=== PATIENT | male | born 1965 | race Caucasian/White ===

== ENCOUNTER 2023-06-01 10:39 | Emergency (ER) | payer SELFPAY ==
[2023-06-01 10:50] VITALS: BP 117/100; PULSE 87; RESP 16; TEMP 36.6; O2SAT 99
--- NOTE | 2023-06-01 11:03 | W.ED.GENAD ---
Discharge Plan Disposition Patient Disposition: Home Discharge Details Clinical Impression: Gastroenteritis Primary Care Provider: None,None ED Provider: Stanley Flores Home Meds and New Rx's Prescriptions: Continued atomoxetine 60 mg capsule 60 mg PO DAILY pantoprazole 40 mg tablet,delayed release (DR/EC) 40 mg PO DAILY amlodipine 10 mg tablet 10 mg PO DAILY potassium chloride 20 mEq/15 mL liquid 20 meq PO DAILY atorvastatin 40 mg tablet 40 mg PO DAILY furosemide [Lasix] 40 mg tablet 40 mg PO DAILY lisinopril 40 mg tablet 40 mg PO DAILY Levemir FlexPen 100 unit/mL (3 mL) insulin pen 40 unit subcut QHS Discharge Instructions Instructions: Gastroenteritis (ED) Additional Instructions: Please continue to stay well-hydrated and monitor symptoms. If you develop any fever, bloody or mucus in your stool, or have any significant change please return to the emergency department immediately for reassessment. We will contact you with your results if you have any positive findings. Stand Alone Forms: Work Release Referrals: Primary Care Provider [Outside] - 3 days Discharge Data Discharge Date/Time-TO BE ENTERED AT DEPARTURE: 06/01/23 15:07 HPI General Mode of arrival: ambulatory. Date/Time Provider Initiated Documentation: 06/01/23 10:57. Limitations to Documentation: no limitations. Information obtained by: patient and RN notes reviewed. History of Present Illness 57 year old M presents to the emergency department with the chief complaint of vomiting diarrhea, described as moderate and similar to prior episodes, Patient started experiencing this week(s) (2) and it has been intermittent. No relieving factors improve symptom(s), Patient did receive the following treatments prior to arrival, other (Imodium) Related Data Home Medications Medication Instructions Recorded Confirmed amlodipine 10 mg tablet 10 mg PO DAILY 06/01/23 06/01/23 atomoxetine 60 mg capsule 60 mg PO DAILY 06/01/23 06/01/23 atorvastatin 40 mg tablet 40 mg PO DAILY 06/01/23 06/01/23 furosemide 40 mg tablet (Lasix) 40 mg PO DAILY 06/01/23 06/01/23 insulin detemir U-100 100 unit/mL 40 unit subcut QHS 06/01/23 06/01/23 (3 mL) subcutaneous pen (Levemir FlexPen) lisinopril 40 mg tablet 40 mg PO DAILY 06/01/23 06/01/23 pantoprazole 40 mg tablet,delayed 40 mg PO DAILY 06/01/23 06/01/23 release potassium chloride 20 mEq/15 mL 20 meq PO DAILY 06/01/23 06/01/23 oral liquid Allergies Allergy/AdvReac Type Severity Reaction Status Date / Time tetracycline Allergy Mild Nausea Verified 06/01/23 10:47 nuts Allergy Mild Nausea Uncoded 06/01/23 10:47 General Stated Complaint: Abd Prob TIGIST: 4 Review of Systems Constitutional Constitutional: Denies fever(s), Denies malaise and Denies poor appetite Cardiovascular Cardiovascular: Denies chest pain and Denies dyspnea Respiratory Respiratory: Denies cough and Denies dyspnea Gastrointestinal Gastrointestinal: Reports as per HPI, Reports abdominal pain, Denies melena, Denies hematochezia, Denies change in bowel habits, Denies constipation, Denies cramping, Reports excessive flatus, Reports diarrhea, Reports loose stools, Reports vomiting and Denies hematemesis Genitourinary Genitourinary: Denies hematuria, Denies difficulty urinating, Denies urinary hesitancy, Denies urinary incontinence and Denies urinary urgency Integumentary/Breasts Skin/Breast: Denies rash Exam Const General: cooperative and not ill appearing Orientation: alert, awake and oriented x3 Resp Effort & Inspection: normal respiratory effort and able to speak in complete sentences Auscultation: clear to auscultation bilaterally Cardio Rate: regular rate Rhythm: regular rhythm Heart Sounds: S1 normal and S2 normal GI Inspection: obesity Palpation: soft, not firm, no guarding, no masses, no pulsatile masses, not rigid and nontender Auscultation: hyperactive bowel sounds Neuro General: patient alert, patient awake, patient oriented x3, gait normal and moves all extremities Course Vital Signs Vital signs: Vital Signs Temperature 36.6 C 06/01/23 10:50 Pulse 87 06/01/23 10:50 Respiratory Rate 16 06/01/23 10:50 Blood Pressure 117/100 H 06/01/23 10:50 Pulse Oximetry 99 06/01/23 10:50 Temperature 36.6 C 06/01/23 10:50 Temperature Source Tympanic 06/01/23 10:50 Pulse 87 06/01/23 10:50 Respiratory Rate 16 06/01/23 10:50 Respiratory Effort Normal, Non-Labored 06/01/23 10:52 Blood Pressure 117/100 H 06/01/23 10:50 Blood Pressure Position Sitting 06/01/23 10:50 Pulse Oximetry 99 06/01/23 10:50 Oxygen Delivery Method Room Air 06/01/23 10:50 Oxygen Flow Rate 0 06/01/23 10:50 Pain Level 4 06/01/23 10:50 Medical Decision Making Patient presenting to the emergency department for chief complaint of vomiting and diarrhea. Patient reports 2 weeks ago he had viral GI illness with vomiting and diarrhea that lasted approximately 2 to 3 days. That resolved but approximately every 5 to 6 days he has 24-hour return of symptoms. Patient reports that he has missed work during these episodes due to multiple episodes of vomiting along with the persistent diarrhea. Patient denies any blood or mucus, fever, or other systemic symptoms. Patient is homeless and living in a [facility]. Patient denies any recent antibiotic use. patient has had cholecystectomy and appendectomy, no other significant contributing GI history. Patient has been using Imodium which is not helping. Physical exam shows hyperactive bowel sounds, soft nontender abdomen, otherwise noncontributory exam. Given that patient states multiple episodes of vomiting along with diarrhea there is concern for some electrolyte abnormalities so we will check patient's blood work, will give fluids pending results, and will attempt to obtain a stool specimen. Will also give Lomotil pending results. Reviewed results and patient does have some noted leukocytosis, elevated BUN and creatinine with elevated glucose, and slight elevation of ALT and alk phos otherwise within normal labs. Patient is negative for C. difficile. Remaining of stool testing is still pending. Reassessed patient and he did state some improvement after receiving Pepto-Bismol and Lomotil did not seem to give significant results. Will continue to recommend Pepto-Bismol pending additional results but given no fever or chills, no blood or mucus, no significant abdominal tenderness will recommend outpatient observation and conservative management pending results. Patient does not have a primary care provider but states that he is planning on going to [facility] to establish health insurance and primary care provider. I informed him to return for any new or significant worsening of condition. After discussion of diagnosis and plan of care patient has no further needs, questions, or concerns and states clear understanding to return to the emergency department for any worsening symptoms. This documentation was generated using [employer] system, please disregard any oddities of phrase or misspellings. Lab Data Lab results reviewed: Yes I reviewed the patient's lab results. Quality:SDOH Health Related Social Needs: No Data to Display PFSH All Active Problems (Updated 06/01/23 @ 14:00 by Stanley Flores NP) Gastroenteritis (Acute) GERD (gastroesophageal reflux disease) (Chronic) Medical History Myocardial infarction Surgical History S/P cholecystectomy S/P appendectomy Social History Smoking/Tobacco Use Status: Current every day Tobacco Type: cigarettes Smoking risk assessment performed?: Yes Alcohol Intake: current Alcohol Intake frequency: holidays/special occasions only Alcohol type: beer Drug use: Never Substance use type: does not use Housing: homeless Do you feel safe at home: Yes Do you feel safe in your relationship?: Yes Additional Social history: pt has job and medication list
[2023-06-01 11:31] LABS: Abs Immature Grans 0.05 10^3/uL (0.0-0.06); Absolute Basophil Count 0.05 10^3/uL (0.0-0.2); Absolute Eosinophil Count 0.29 10^3/uL (0.0-0.7); Absolute Lymphocyte Count 1.18 10^3/uL (1.2-3.4); Basophils % 0.4; Eosinophils % 2.4; HCT 43.2 % (40.0-50.0); HGB 14.6 g/dL (13.5-17.5); Immature Grans % 0.4; Lymphocytes % 9.8; MCH 30.1 pg (27.0-33.0); MCHC 33.8 % (32.0-36.0); MCV 89 fL (80-95); MPV 9.4 fL (8.0-11.0); Monocytes % 7.8; Neutrophils % 79.2; Platelet Count 234 10^3/uL (130-400); RBC 4.85 10^6/uL (4.36-5.78); RDW 12.5 % (11.8-14.1); RDW-SD 41.1 fL; WBC 11.99 10^3/uL (4.4-10.8)
[2023-06-01 11:32] LABS: Absolute Monocyte Count 0.94 10^3/uL (0.1-0.8)
[2023-06-01 11:45] LABS: ALT 104 U/L (16-63); AST 34 U/L (15-37); Albumin 4.2 g/dL (3.4-5.0); Alkaline Phosphatase 118 U/L (46-116); Anion Gap 10.8 mmol/L (3-11); BUN 42 mg/dL (7-18); Bilirubin, Total 0.8 mg/dL (0.2-1.0); CO2 28.2 mmol/L (21.0-32.0); CREATININE 1.5 mg/dL (0.70-1.30); Calcium 9.5 mg/dL (8.5-10.1); Chloride 105 mmol/L (98-107); Estimated GFR 53.96 (mL/min/1.73m2); Glucose 236 mg/dL (74-106); Lipase 22 U/L (16-77); Potassium 3.9 mmol/L (3.5-5.1); Sodium 144 mmol/L (136-145); Total Protein 8.2 g/dL (6.4-8.2)
[2023-06-01] MEDS: Normal Saline 1,000 ML 1000 ML IV (11:55)
[2023-06-01 12:23] LABS: C Diff PCR Negative (Negative)
[2023-06-01 14:43] VITALS: BP 117/100; BP 120/88; PULSE 74; PULSE 87; RESP 16; TEMP 36.6; O2SAT 99
[2023-06-02 23:01] LABS: Campylobacter PCR Negative (Negative); Salmonella PCR Negative (Negative); Shiga Toxin PCR Negative (Negative); Shigella/Enteroinvasive Ecoli Negative (Negative)
== END 2023-06-01 15:07 | disposition home or self-care (01) ==
PROVIDERS: Emergency Provider Nurse Practitioner Family
DX: K52.9 Noninfective gastroenteritis and colitis, unspecified (principal); Z90.49 Acquired absence of other specified parts of digestive tract; Z59.00 Homelessness unspecified; Z87.891 Personal history of nicotine dependence
CPT/HCPCS: 80053; 83690; 87329; 87493; 87505; 96360; 99284; 85025; 87177

== ENCOUNTER 2023-07-29 15:48 | Inpatient (IN) | payer MEDICAID, SELFPAY ==
[2023-07-29 16:02] VITALS: BP 165/96; PULSE 88; RESP 18; TEMP 37.2; O2SAT 97
--- NOTE | 2023-07-29 17:00 | DI.RAD_ITS ---
Exam(s) XR FOOT RT COMPLETE EXAM: XR FOOT RT COMPLETE CLINICAL HISTORY: swelling. TECHNIQUE: 2D digital imaging was performed of the right foot. Three images were obtained. AP, obl ique and lateral views were obtained. COMPARISON: No exams were available for comparison FINDINGS: BONES: No acute fracture is present. No bony destructive lesion is seen. There is a small plantar lori caneal spur. JOINTS: The navicular is medially and proximally displaced with subluxation of the talonavicular join t. On the lateral view, there are several osseous fragments seen distal to the talus in the site whe re the navicular should lie. These may reflect fracture fragments. There is a triangular well corti cated bony density on the dorsum of the foot at the tarsometatarsal joints which appears old. SOFT TISSUE: There is soft tissue swelling over the metatarsophalangeal joint region. No radiopaque foreign bodies are seen. IMPRESSION: Medial rotation and displacement of the navicular bone with subluxation of the talonavicular joint. A CT scan of the foot is recommended for further evaluation. Findings were discussed with Dr. Wilson at 6:20 p.m. on 07/29/2023. DATA REPOSITORY: RADIATION DOSE DELIVERED:
[2023-07-29 17:03] VITALS: BP 165/96; PULSE 88; RESP 18; TEMP 37.2; O2SAT 97
[2023-07-29 17:42] LABS: Abs Immature Grans 0.03 10^3/uL (0.0-0.06); Absolute Basophil Count 0.04 10^3/uL (0.0-0.2); Absolute Eosinophil Count 0.42 10^3/uL (0.0-0.7); Absolute Lymphocyte Count 1.33 10^3/uL (1.2-3.4); Absolute Monocyte Count 1.09 10^3/uL (0.1-0.8); Absolute Neutrophil Count 8.83 10^3/uL (1.2-6.7); Basophils % 0.3 %; Eosinophils % 3.6 %; HCT 37.6 % (40.0-50.0); HGB 12.5 g/dL (13.5-17.5); Immature Grans % 0.3 %; Lymphocytes % 11.3 %; MCHC 33.2 % (32.0-36.0); MCV 90 fL (80-95); MPV 9.4 fL (8.0-11.0); Monocytes % 9.3 %; Neutrophils % 75.2 %; Platelet Count 201 10^3/uL (130-400); RBC 4.17 10^6/uL (4.36-5.78); RDW 12.6 % (11.8-14.1); RDW-SD 41.7 fL; WBC 11.74 10^3/uL (4.4-10.8)
[2023-07-29 17:47] LABS: ESR 52 mm/hr (0-20)
[2023-07-29 17:59] LABS: ALT 26 U/L (16-63); AST 20 U/L (15-37); Albumin 3.6 g/dL (3.4-5.0); Alkaline Phosphatase 103 U/L (46-116); Anion Gap 9.6 mmol/L (3-11); BUN 22 mg/dL (7-18); Bilirubin, Total 1.2 mg/dL (0.2-1.0); CO2 28.4 mmol/L (21.0-32.0); CREATININE 1.3 mg/dL (0.70-1.30); Chloride 104 mmol/L (98-107); Estimated GFR 64.07 (mL/min/1.73m2); Glucose 168 mg/dL (74-106); Magnesium 1.6 mg/dL (1.8-2.4); Potassium 3.5 mmol/L (3.5-5.1); Sodium 142 mmol/L (136-145); Total Protein 7.7 g/dL (6.4-8.2)
[2023-07-29 18:11] LABS: C-Reactive Protein 8.21 mg/dL (<or=0.5)
--- NOTE | 2023-07-29 18:24 | DI.VRAD_ITS ---
Addendum created by Ruben Ventura MD on 07/29/2023 6:41:16 PM EDT: THIS REPORT CONTAINS FINDINGS THAT MAY BE CRITICAL TO PATIENT CARE. The findings were verbally communicated via telephone conference with ALONDRA SPEAR at 6:41 PM EDT on 07/29/2023. The findings were acknowledged and understood. Initial report created on 07/29/2023 6:23:52 PM EDT: PROCEDURE INFORMATION: Exam: XR Right Foot Exam date and time: 07/29/2023 5:36 PM Age: 57 years old Clinical indication: Swelling, leg or foot; Patient HX: Swelling in R foot TECHNIQUE: Imaging protocol: Radiologic exam of the right foot. Views: 3 or more views. COMPARISON: No relevant prior studies available. FINDINGS: Bones/joints: Suspected fracture seen involving the base of the proximal phalanx of the right 5th toe. A 2 mm ossific density just proximal to the base of the right 5th metatarsal suspicious for possible avulsion fracture. Question of possible osseous fragmentation along the dorsal aspect of the right midfoot in the interval between the distal pole of the talus and the cuneiforms. Soft tissues: Suspected soft tissue swelling along the dorsum and lateral aspect of the right midfoot and forefoot. IMPRESSION: Suspected fractures involving the base of the proximal phalanx of the right 5th toe with avulsion fracture suspected along the base of the right 5th metatarsal, age indeterminate. Question of osseous fragmentation also seen along the dorsal aspect of the right midfoot as above. MRI is suggested for further evaluation. Dictated and Authenticated by: Ruben Ventura MD. Ordering:FARIBA Hillman MD
--- NOTE | 2023-07-29 18:54 | DI.CT_ITS ---
Exam(s) CT LOWER EXTREMITY RT WO EXAM: CT LOWER EXTREMITY RT WO CLINICAL HISTORY: foot swelling. TECHNIQUE: Imaging Protocol: Axial computed tomography images with coronal and sagittal reformatted images were created and reviewed. COMPARISON: CR,XR XR FOOT RT COMPLETE from 07/29/2023 FINDINGS: Bones: The navicular bone is rotated medially and subluxed inferiorly and medially radiate relative to the talus. There is a fracture involving the superior medial aspect of the talus. There are elif ral fracture fragments located along the dorsal and lateral aspect of the talonavicular joint. There are tiny fragments seen proximal to the base of the 5th metatarsal bone. These may represent avulse d fracture fragments. There is a small plantar calcaneal spur. There is an enthesophyte at the post erior calcaneus. No lytic or sclerotic lesions are identified. Soft Tissues: Vascular calcifications are present throughout the foot. There is soft tissue swelling of the foot noted. IMPRESSION: 1. Fracture dislocation of the talus as described above. This can be seen with a neuropathic foot. 2. Question of a fracture of indeterminate age involving the base of the 5th metatarsal bone. 3. Vascular calcifications are present throughout the foot. There is soft tissue swelling of the mendy t. RADIATION DOSE DELIVERED: 207.8mGy.cm Total DLP 207.8mGy.cm Total DLP DATA REPOSITORY: All CT scans at this facility are submitted to the National Radiology Data Registry (NRDR) Dose Index Registry (DIR) with the [employer] (ACR). RADIATION OPTIMIZATION: All CT scans at this facility use at least one of these dose optimization te chniques: automated exposure control; mA and/or kV adjustment per patient size (includes targeted exa ms where dose is matched to clinical indication); or iterative reconstruction.
[2023-07-29] MEDS: Sulfameth/Trimeth DS TAB 1 TAB PO (19:01)
--- NOTE | 2023-07-29 19:13 | DI.VRAD_ITS ---
Addendum created by Ruben Ventura MD on 07/29/2023 7:15:19 PM EDT: THIS REPORT CONTAINS FINDINGS THAT MAY BE CRITICAL TO PATIENT CARE. The findings were verbally communicated via telephone conference with ALONDRA SPEAR at 7:15 PM EDT on 07/29/2023. The findings were acknowledged and understood. Initial report created on 07/29/2023 7:12:03 PM EDT: PROCEDURE INFORMATION: Exam: CT Right Lower Extremity Without Contrast Exam date and time: 07/29/2023 6:44 PM Age: 57 years old Clinical indication: Other: Foot swelling; Patient HX: Diabetes TECHNIQUE: Imaging protocol: CT of the right lower extremity without contrast was performed. COMPARISON: CR XR FOOT RT COMPLETE 07/29/2023 5:36 PM FINDINGS: Bones/joints: There is comminuted fracture/dislocation of the navicular bone which is subluxed inferiorly with respect to the head of the talus. Question subtle fracture involving the base of the proximal phalanx of the right 5th toe with small 2 mm avulsion fragment also seen adjacent to the base of the 5th metatarsal. Soft tissues: Subcutaneous soft tissue swelling seen diffusely about the right foot. IMPRESSION: 1. There is comminuted fracture/dislocation of the navicular bone which is subluxed inferiorly with respect to the head of the talus. 2. Question subtle fracture involving the base of the proximal phalanx of the right 5th toe with small 2 mm avulsion fragment also seen adjacent to the base of the 5th metatarsal. 3. Subcutaneous soft tissue swelling seen diffusely about the right foot. Dictated and Authenticated by: Ruben Ventura MD. Ordering: Katie Hillman MD
--- NOTE | 2023-07-29 20:58 | W.ED.GENAD ---
Discharge Plan Disposition Patient Disposition: Admit to [facility] Discharge Details Clinical Impression: Right leg swelling, Cellulitis, Diabetes, Closed dislocation of navicular bone of right foot, Peripheral neuropathy, Closed fracture of fifth toe of right foot, Closed navicular fracture of right foot Primary Care Provider: Unknown,Unknown ED Provider: Estelita Wilson Home Meds and New Rx's Prescriptions: New sulfamethoxazole-trimethoprim [Bactrim DS] 800-160 mg tablet 1 tab PO BID 7 Days Qty: 14 0RF No Action atomoxetine 60 mg capsule 60 mg PO DAILY pantoprazole 40 mg tablet,delayed release (DR/EC) 40 mg PO DAILY amlodipine 10 mg tablet 10 mg PO DAILY potassium chloride 20 mEq/15 mL liquid 20 meq PO DAILY atorvastatin 40 mg tablet 40 mg PO DAILY furosemide [Lasix] 40 mg tablet 40 mg PO DAILY lisinopril 40 mg tablet 40 mg PO DAILY Levemir FlexPen 100 unit/mL (3 mL) insulin pen 40 unit subcut QHS HPI General Date/Time Provider Initiated Documentation: 07/29/23 16:28. Limitations to Documentation: no limitations. Information obtained by: patient. HPI Narrative: 57-year-old gentleman with past medical history of diabetes, hypertension presents for evaluation of right leg pain and swelling. He reports that he has been having symptoms for the last 3 days. He reports that the pain started after walking to and from work. He states that he had to walk [address] He denies any falls or trauma. He states that he has noted some redness and he was worried about infection because he has had this before. He does report that he has a history of diabetes and states that he has had osteomyelitis in his left leg. He denies any fever Related Data Home Medications Medication Instructions Recorded Confirmed amlodipine 10 mg tablet 10 mg PO DAILY 06/01/23 07/29/23 atomoxetine 60 mg capsule 60 mg PO DAILY 06/01/23 07/29/23 atorvastatin 40 mg tablet 40 mg PO DAILY 06/01/23 07/29/23 furosemide 40 mg tablet (Lasix) 40 mg PO DAILY 06/01/23 07/29/23 insulin detemir U-100 100 unit/mL 40 unit subcut QHS 06/01/23 07/29/23 (3 mL) subcutaneous pen (Levemir FlexPen) lisinopril 40 mg tablet 40 mg PO DAILY 06/01/23 07/29/23 pantoprazole 40 mg tablet,delayed 40 mg PO DAILY 06/01/23 07/29/23 release potassium chloride 20 mEq/15 mL 20 meq PO DAILY 06/01/23 07/29/23 oral liquid sulfamethoxazole 800 1 tab PO BID 7 days #14 tabs 07/29/23 mg-trimethoprim 160 mg tablet (Bactrim DS) Previous Rx's Medication Instructions Recorded sulfamethoxazole 800 1 tab PO BID 7 days #14 tabs 07/29/23 mg-trimethoprim 160 mg tablet (Bactrim DS) Allergies Allergy/AdvReac Type Severity Reaction Status Date / Time tetracycline Allergy Mild Nausea Verified 07/29/23 18:58 nuts Allergy Mild Nausea Uncoded 07/29/23 18:58 erythromycin AdvReac Intermediate Diarrhea Uncoded 07/29/23 18:58 General Stated Complaint: GenMedical TIGIST: 3 Exam Narrative Exam Narrative: Review of Systems: All systems reviewed & are unremarkable except as noted in HPI and below Well-developed, no acute distress NCAT PERRL, normal conjunctiva RRR no murmur Unlabored respiratory effort, clear bilaterally Nondistended abdomen Right lower extremity with significant erythema, warmth to touch, there is edema up to the knee, erythema mostly on the left foot and ankle area. No appreciable crepitus. There is a small blister on the bottom of the foot no ulceration no focal neurologic deficits Appropriate mood and affect Course Vital Signs Vital signs: Vital Signs Temperature 37.2 C 07/29/23 16:02 Pulse 88 07/29/23 16:02 Respiratory Rate 18 07/29/23 16:02 Blood Pressure 165/96 H 07/29/23 16:02 Pulse Oximetry 97 07/29/23 16:02 Temperature 37.2 C 07/29/23 17:03 Temperature Source Tympanic 07/29/23 17:03 Pulse 88 07/29/23 17:03 Respiratory Rate 18 07/29/23 17:03 Respiratory Effort Normal, Non-Labored 07/29/23 17:05 Respiratory Depth Normal 07/29/23 17:05 Respiratory Pattern Normal 07/29/23 17:05 Blood Pressure 165/96 H 07/29/23 17:03 Blood Pressure Position Sitting 07/29/23 17:03 Pulse Oximetry 97 07/29/23 17:03 Oxygen Delivery Method Room Air 07/29/23 17:03 Oxygen Flow Rate 0 07/29/23 17:03 Pain Level 8 07/29/23 17:03 Comment Taking advil for the pain but doesn't think it's helping 07/29/23 17:03 Lab/Test Results Lab/Test Results: Laboratory Tests Range/Units 07/29/23 17:19 WBC (4.4-10.8) 10^3/uL 11.74 H RBC (4.36-5.78) 10^6/uL 4.17 L Hgb (13.5-17.5) g/dL 12.5 L Hct (40.0-50.0) % 37.6 L MCV (80-95) fL 90 MCH (27.0-33.0) pg 30.0 MCHC (32.0-36.0) % 33.2 RDW (11.8-14.1) % 12.6 Plt Count (130-400) 10^3/uL 201 MPV (8.0-11.0) fL 9.4 Immature Gran % % 0.3 Neutrophils % % 75.2 Lymphocytes % % 11.3 Monocytes % % 9.3 Eosinophils % % 3.6 Basophils % % 0.3 Nucleated RBC % (0.0-0.3) % 0.0 Absolute Neutrophils (1.2-6.7) 10^3/uL 8.83 H Absolute Lymphocytes (1.2-3.4) 10^3/uL 1.33 Absolute Monocytes (0.1-0.8) 10^3/uL 1.09 H Absolute Eosinophils (0.0-0.7) 10^3/uL 0.42 Absolute Basophils (0.0-0.2) 10^3/uL 0.04 ESR (0-20) mm/hr 52 H Sodium (136-145) mmol/L 142 Potassium (3.5-5.1) mmol/L 3.5 Chloride (98-107) mmol/L 104 Carbon Dioxide (21.0-32.0) mmol/L 28.4 Anion Gap (3-11) mmol/L 9.6 BUN (7-18) mg/dL 22 H Creatinine (0.70-1.30) mg/dL 1.3 Est GFR (CKD-EPI 2020) (mL/min/1.73m2) 64.07 Glucose (74-106) mg/dL 168 H Calcium (8.5-10.1) mg/dL 9.0 Magnesium (1.8-2.4) mg/dL 1.6 L Total Bilirubin (0.2-1.0) mg/dL 1.2 H AST (15-37) U/L 20 ALT (16-63) U/L 26 Alkaline Phosphatase (46-116) U/L 103 C-Reactive Protein (<or=0.5) mg/dL 8.21 H Total Protein (6.4-8.2) g/dL 7.7 Albumin (3.4-5.0) g/dL 3.6 Medical Decision Making Emergent evaluation of right leg pain and swelling for 3 days. initial ddx includes cellulitis, necrotizing infection, osteomyelitis. Patient denies any trauma. He does have a small wound on the plantar aspect of his foot but do not feel that this wound is very deep or significant as an open ulceration. Lab work was obtained. It was noted that the patient had an elevated white blood cell count with shift. Elevated inflammatory markers. Hyperglycemia noted without any evidence of DKA. Renal function on the upper limit of normal. A dose of Bactrim was given in the emergency department for empiric treatment of cellulitis. An x-ray was obtained and discussed with radiologist. There is concern for fracture or dislocated navicular bone in the foot. Again we discussed with the patient and he denies any history of trauma. He does have fairly significant peripheral neuropathy so it is possible that he did not notice the event. Radiology recommending an MRI, but I am unable to do so at this time, a CT scan was obtained to further evaluate the fracture pattern, and it does demonstrate fracture dislocation of the navicular bone in addition to some fracture pattern noted on the fifth toe. Currently do not have orthopedic surgery available, so I discussed with orthopedic surgery at [facility]. They have reviewed photographs of the patient's foot, and is well as the images. They do recommend admission, but they are unable to take the patient as a transfer worsening can Nicko to their capacity issues. They are recommending admission, MRI, ABIs. The radiologist at [facility] did do an overread and sees the soft tissue edema suggesting cellulitis which is consistent with the photos and the labs. They feel the fractures are likely chronic. But if this is in the setting of osteo-, this would definitely complicate management. They are recommending starting empiric antibiotics pending the MRI. I have ordered a dose of vancomycin. 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 Medical Records Medical records reviewed: Yes I reviewed the patient's medical records. Lab Data Lab results reviewed: Yes I reviewed the patient's lab results. Quality:SDPA Health Related Social Needs: No Data to Display [facility] All Active Problems (Updated 07/29/23 @ 21:40 by Estelita Wilson MD) Closed navicular fracture of right foot (Acute) Closed fracture of fifth toe of right foot (Acute) Peripheral neuropathy (Acute) Closed dislocation of navicular bone of right foot (Acute) Diabetes (Chronic) Cellulitis (Acute) Right leg swelling (Acute) GERD (gastroesophageal reflux disease) (Chronic) Medical History Myocardial infarction Surgical History S/P cholecystectomy S/P appendectomy Social History Smoking/Tobacco Use Status: Current every day Tobacco Type: cigarettes Smoking risk assessment performed?: Yes Alcohol Intake: current Alcohol Intake frequency: holidays/special occasions only Alcohol type: beer Drug use: Never Substance use type: does not use Housing: homeless Do you feel safe at home: Yes Do you feel safe in your relationship?: Yes Additional Social history: pt has job and medication list
[2023-07-29 21:07] VITALS: BP 152/86; PULSE 87; RESP 14; O2SAT 97
[2023-07-29] MEDS: VANCOMYCIN 1,500 MG in Normal Saline 250 ML 166.6666 MG IVPB (22:34)
--- NOTE | 2023-07-29 22:36 | W.PM.HP.N ---
Date of service: 07/29/23 Time of Service: 22:36 Assessment and Plan Assessment and plan (1) Cellulitis: Status: Acute Assessment and plan: - As noted above for HPI patient presented with right foot and leg swelling and pain for 3 days and was found to have communicated to good fracture/dislocation of the navicular bone which is subluxed inferiorly with respect to the head of the talus questionable subtle fracture involving the base of the proximal phalanx of fifth toe with small 2 mm avulsion fragment adjacent to the base of the fifth metatarsal and some subcutaneous soft tissue swelling seen diffusely about the right foot as seen on CT -Mildly enough, patient denies any recent trauma to explain fractures -As discussed with [facility] orthopedic surgery, they recommended initiation and empiric antibiotics and an MRI in the morning -started on vanc in the ED, will continue -blood cuttures not ordered prior to initiation of antibiotics, which have now been order on admission -will also add cefepime -f/u AM MRI -f/u consult with Ortho in AM (2) Closed navicular fracture of right foot: Status: Acute Assessment and plan: -as noted above (3) Closed fracture of fifth toe of right foot: Status: Acute Assessment and plan: -as noted above (4) Closed dislocation of navicular bone of right foot: Status: Acute Assessment and plan: -as noted above (5) Diabetes: Status: Chronic Assessment and plan: -continue home levemir 40U HS (6) HTN (hypertension): Status: Chronic Assessment and plan: -continue home lasix, lisinopril, and amlodipine History of Present Illness History of Present Illness Chief Complaint: right leg pain Narrative: 57yo male with PMH IDDM, and HTN who presented to the ED with complaints or right foot/leg pain. Patient states that be began to have right foot pain that began 3 days ago was started which is a 3 mile walk each direction. Patient denies any falls or trauma prior to or during that timeframe. He also noted worsening redness that began in his distal right lower extremity that began to work his way approximately and he presented to the emergency department because he was worried about infection which he had previously had. Patient denies any, discharge, fevers, lightheaded nests, dizziness, nausea vomiting or diarrhea. In the emergency department the patient was noted as having normal vital signs, and physical exam was notable for right lower extremity erythema, warmth, edema up to the knee without any crepitus or open wounds. CBC and CMP were unremarkable though patient did have an elevated elevated CRP of about 8. X-ray of the right lower extremity showed medial regurgitation and displacement of the ventricular bolus subluxation of the talonavicular joint recommended a CT which showed communicated to good fracture/dislocation of the navicular bone which is subluxed inferiorly with respect to the head of the talus questionable subtle fracture involving the base of the proximal phalanx of fifth toe with small 2 mm avulsion fragment adjacent to the base of the fifth metatarsal and some subcutaneous soft tissue swelling seen diffusely about the right foot. Emergency room physician discussed case with orthopedic surgery as [facility] did not have orthopedic surgery coverage this evening. Initially they recommended holding off on antibiotics and obtaining an MRI in the morning, however orthopedics and radiology determined with further review of the images believe the patient had cellulitis and may in fact have a possible osteomyelitis though continue to recommend MRI at this time did recommend initiation of empiric antibiotic buttocks. At which time emergency room physician paged hospitalist for admission for patient with cellulitis and possible osteomyelitis requiring IV antibiotics and orthopedic versus podiatry consultation in the morning. Review of Systems All systems reviewed & are unremarkable except as noted in HPI and below PFSH All Active Problems (Updated 07/29/23 @ 22:52 by Nagi Chadwick MD) HTN (hypertension) (Chronic) Closed navicular fracture of right foot (Acute) Closed fracture of fifth toe of right foot (Acute) Peripheral neuropathy (Acute) Closed dislocation of navicular bone of right foot (Acute) Diabetes (Chronic) Cellulitis (Acute) Right leg swelling (Acute) GERD (gastroesophageal reflux disease) (Chronic) Medical History Myocardial infarction Surgical History S/P cholecystectomy S/P appendectomy Social History Smoking/Tobacco Use Status: Current every day Tobacco Type: cigarettes Smoking risk assessment performed?: Yes Alcohol Intake: current Alcohol Intake frequency: holidays/special occasions only Alcohol type: beer Drug use: Never Substance use type: does not use Housing: homeless Do you feel safe at home: Yes Do you feel safe in your relationship?: Yes Additional Social history: pt has job and medication list Meds Allergies and Home Medications Allergies Allergy/AdvReac Type Severity Reaction Status Date / Time tetracycline Allergy Mild Nausea Verified 07/29/23 18:58 nuts Allergy Mild Nausea Uncoded 07/29/23 18:58 erythromycin AdvReac Intermediate Diarrhea Uncoded 07/29/23 18:58 Home Medications Medication Instructions Recorded Confirmed Type amlodipine 10 mg tablet 10 mg PO DAILY 06/01/23 07/29/23 History atomoxetine 60 mg capsule 60 mg PO DAILY 06/01/23 07/29/23 History atorvastatin 40 mg tablet 40 mg PO DAILY 06/01/23 07/29/23 History furosemide 40 mg tablet (Lasix) 40 mg PO DAILY 06/01/23 07/29/23 History insulin detemir U-100 100 unit/mL 40 unit subcut QHS 06/01/23 07/29/23 History (3 mL) subcutaneous pen (Levemir FlexPen) lisinopril 40 mg tablet 40 mg PO DAILY 06/01/23 07/29/23 History pantoprazole 40 mg tablet,delayed 40 mg PO DAILY 06/01/23 07/29/23 History release potassium chloride 20 mEq/15 mL 20 meq PO DAILY 06/01/23 07/29/23 History oral liquid sulfamethoxazole 800 1 tab PO BID 7 days #14 tabs 07/29/23 Rx mg-trimethoprim 160 mg tablet (Bactrim DS) Exam Narrative Exam Narrative: Well-appearing gentleman laying in bed in no acute distress, ANO x 4, heart regular rate and rhythm, lungs clear to auscultation bilaterally, abdomen soft, nontender, nondistended, significant erythema and warmth of the right lower extremity to about the knee with associated edema without any visibly open wounds Results Labs 07/29/23 17:19 07/29/23 17:19 Labs: Laboratory Results - last 24 hr 07/29/23 17:19 WBC 11.74 H RBC 4.17 L Hgb 12.5 L Hct 37.6 L MCV 90 MCH 30.0 MCHC 33.2 RDW 12.6 Plt Count 201 MPV 9.4 Immature Gran % 0.3 Neutrophils % 75.2 Lymphocytes % 11.3 Monocytes % 9.3 Eosinophils % 3.6 Basophils % 0.3 Nucleated RBC % 0.0 Absolute Neutrophils 8.83 H Absolute Lymphocytes 1.33 Absolute Monocytes 1.09 H Absolute Eosinophils 0.42 Absolute Basophils 0.04 ESR 52 H Sodium 142 Potassium 3.5 Chloride 104 Carbon Dioxide 28.4 Anion Gap 9.6 BUN 22 H Creatinine 1.3 Est GFR (CKD-EPI 2020) 64.07 Glucose 168 H Calcium 9.0 Magnesium 1.6 L Total Bilirubin 1.2 H AST 20 ALT 26 Alkaline Phosphatase 103 C-Reactive Protein 8.21 H Total Protein 7.7 Albumin 3.6 Last Vital Signs Temp 99 F 07/29/23 17:03 Pulse 87 07/29/23 21:07 Resp 14 07/29/23 21:07 BP 152/86 H 07/29/23 21:07 Pulse Ox 97 07/29/23 21:07 Time Spent Time spent with Patient: >75 minutes Time was spent: preparing to see the patient(eg.review tests), obtaining and/or reviewing separately otained hiistory, ordering medications,tests, procedures, referring, communicating with other health healthcare facility administrator, indepentently interpreting results, counseling the patient and care coordination
[2023-07-29] MEDS: CEFEPIME 2 GM in Normal Saline 100 ML IVPB (23:42)
[2023-07-30] VITALS (7 sets, daily range): BP systolic 132–150; BP diastolic 78–92; PULSE 77–84; RESP 16–20; TEMP 36.6–37.5; O2SAT 92–100
--- NOTE | 2023-07-30 | DI.MRI_ITS ---
Exam(s) MR LOWER EXTREMITY RT WO/W EXAM: MR LOWER EXTREMITY RT WO/W CLINICAL HISTORY: Navicular fx, poss. osteo. TECHNIQUE: Multiplanar multisequence MRI was performed. CONTRAST MATERIAL: IV Contrast: 20 mL of Dotarem contrast administered. COMPARISON: CR,XR XR FOOT RT COMPLETE from 07/29/[address] LOWER EXTREMITY RT WO from 07/29/2023 FINDINGS: Examination limited by patient motion artifact. BONES/JOINTS: The navicular bone is subluxed inferior and medial to the distal talus. Fracture fragm ents are seen in the navicular bed consistent with the known fracture involving the lateral aspect of the navicular. There is fluid seen in the bed of the navicular which may represent hemorrhage. The re is no wall enhancement to suggest an abscess. There is marrow edema seen in some degree in all of the tarsal bones and the proximal 2nd, 3rd and 4th metatarsal bones. There is a small ankle joint e ffusion. LIGAMENTS: The talofibular ligaments and the deltoid ligaments are intact. MUSCULOTENDINOUS STRUCTURES: Visualized portion of the planar fascia is unremarkable. The visualized intrinsic muscles and tendons of the foot are unremarkable. SOFT TISSUES: There is edema seen in the soft tissues of the foot without focal fluid collection to s uggest an abscess. ENHANCEMENT: No enhancing mass or fluid collection is present. OTHER FINDINGS: None. IMPRESSION: 1. Findings suspicious for Charcot foot. 2. There is medial inferior subluxation of the navicular bone relative to the distal talus. 3. There is a fracture of the lateral aspect of the navicular bone. Fracture fragments are seen with in the navicular bed. 4. There is fluid seen in the navicular bed which may represent hemorrhage. There is no enhancement to suggest an abscess. 5. Diffuse edema seen in the soft tissues around the foot but no focal fluid collection is seen to bhatia ggest an abscess. 6. Examination is limited secondary to patient motion artifact. 7. Examination was discussed with Dr. Quinones on 07/30/2023. DATA REPOSITORY:
[2023-07-30] MEDS: Normal Saline Flush 10 ML SYR IVP ×4 (03:06→23:55)
[2023-07-30] MEDS: Esomeprazole 40 MG CAPCR PO ×3 (03:06→21:08)
[2023-07-30] MEDS: Normal Saline 1,000 ML 150 ML IV (06:32)
[2023-07-30 06:47] LABS: HCT 35.3 % (40.0-50.0); HGB 11.7 g/dL (13.5-17.5); MCH 29.9 pg (27.0-33.0); MCHC 33.1 % (32.0-36.0); MCV 90 fL (80-95); Platelet Count 179 10^3/uL (130-400); RBC 3.91 10^6/uL (4.36-5.78); RDW 12.6 % (11.8-14.1); RDW-SD 41.6 fL; WBC 9.18 10^3/uL (4.4-10.8)
[2023-07-30 07:04] LABS: Hemoglobin A1C 6.9 % (<5.7)
[2023-07-30 07:05] LABS: Anion Gap 8.5 mmol/L (3-11); BUN 19 mg/dL (7-18); CO2 29.5 mmol/L (21.0-32.0); CREATININE 1.3 mg/dL (0.70-1.30); Calcium 8.7 mg/dL (8.5-10.1); Chloride 105 mmol/L (98-107); Estimated GFR 64.07 (mL/min/1.73m2); Glucose 181 mg/dL (74-106); Magnesium 1.6 mg/dL (1.8-2.4); Potassium 3.2 mmol/L (3.5-5.1); Sodium 143 mmol/L (136-145)
[2023-07-30] MEDS: Gadoterate meglumine 20 ML SYRINGE IVP (07:36)
--- NOTE | 2023-07-30 09:24 | INITIAL_ITS ---
Date of service: 07/30/23 Time of Service: 09:24 Care Management Initial Assmt Initial Assessment REASON FOR HOSPITALIZATION:: Right Leg Cellulites PREVIOUS FUNCTIONAL STATUS/SOCIAL/FAMILY SUPPORTS:: Efren has been staying at the homeless long term in [facility] since April 2023. Efren was working at the [employer] in [place] until his position was transferred to their [facility] location in April. Efren has no local family or community supports. He states that he is on the outs with his mother lives in [facility] and his ex- and 3 adult children live in [place]. Eventually Efren would like to move to [place] to help with his children, since his ex- has a clot in her brain and may need brain surgery. Efren walks or uses [facility] for transportation. He is independent with his ADL's at baseline and is in the process of signing up for SSDI due to ADHD and diabetes. CURRENT FUNCTIONAL STATUS:: Efren is lying in bed when CM met with him. Podiatry is consulted and is currently non-weightbearing, which is a big concern for him because he walks to work. Per pt, he is on the outs with his family which is one of the reasons he came to this area. He is hoping to go back to [place] at some point, however he would need a good job lined up. 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 He has a room reserved for him at the homeless long term and plans on going back there after discharge. Per pt, [employer] was trying to help him obtain state insurance however he makes to much to qualify for Medicaid. ADVANCE DIRECTIVES:: None, CM will review Has patient been provided with info about the portal/API?: Yes Did the patient sign up for the portal?: No CODE STATUS:: Full Code INSURANCE COVERAGE / FINANCIAL ISSUES:: Financial Assistance 100% CURRENT HOME/COMMUNITY SERVICES/EQUIPMENT:: Working with [employer] at [employer] S[employer] food benefits Applying for disability PRIMARY CARE PHYSICIAN:: None locally. Was seeing Junaid Anderson. (no [place] insurance) POTENTIAL DISCHARGE NEEDS:: Tdoc follow up, work note PATIENT/FAMILY EDUCATION NEEDS:: Review discharge instructions, limitations, medications and plan to follow up with community providers. Discuss ask me three and goals of self care. TRANSPORTATION:: via [facility] private vehicle. PLAN:: Efren is being treated with IV ABX, cultures are pending, podiatry is consulted. Anticipate pt will discharge back to the homeless long term where he resides when medically cleared for discharge. He will follow up with community providers and his discharge plan of care as instructed. He will transport via [facility] private vehicle. CM will follow. PFS All Active Problems (Updated 07/30/23 @ 14:04 by Tesha Quinones DPM) Edema (Acute) Pain in right foot (Acute) Charcot's joint, right ankle and foot (Acute) Charcot foot due to diabetes mellitus (Acute) HTN (hypertension) (Chronic) Closed navicular fracture of right foot (Acute) Closed fracture of fifth toe of right foot (Acute) Peripheral neuropathy (Acute) Closed dislocation of navicular bone of right foot (Acute) Diabetes (Chronic) Cellulitis (Acute) Right leg swelling (Acute) GERD (gastroesophageal reflux disease) (Chronic) Medical History Myocardial infarction Surgical History S/P cholecystectomy S/P appendectomy Social History Smoking/Tobacco Use Status: Current every day Tobacco Type: cigarettes Smoking risk assessment performed?: Yes Alcohol Intake: current Alcohol Intake frequency: holidays/special occasions only Alcohol type: beer Drug use: Never Substance use type: does not use Housing: homeless Do you feel safe at home: Yes Do you feel safe in your relationship?: Yes Additional Social history: pt has job and medication list SDOH(Care Management) Screening Will the Patient Participate in the Screening?: Declined to provide Do you worry about having a steady place to live?: choose not to answer Social Determinants of Health Comments(SDOH Details): Patient lives in homeless long term at this moment.
--- NOTE | 2023-07-30 09:27 | DI.VRAD_ITS ---
PROCEDURE INFORMATION: Exam: MR Right Lower Extremity Other Than Joint Without and With Contrast; Foot Exam date and time: 07/30/2023 7:26 AM Age: 57 years old Clinical indication: Pain; Swelling, leg or foot; Right; Patient HX: Navicular FX TECHNIQUE: Imaging protocol: Magnetic resonance imaging of the right lower extremity without and with contrast. Exam focused on the foot. Contrast material: DOTAREM; Contrast volume: 20 ml; Contrast route: INTRAVENOUS (IV); COMPARISON: CT LOWER EXTREMITY RT WO 07/29/2023 6:44 PM FINDINGS: Bones/joints: Complex comminuted fracturing of the navicular bone is noted, with interosseous edema. Navicular bone is again subluxed inferiorly with respect to the talus. Additional avulsion fractures of the lateral cuneiform as well as the middle cuneiform are also noted, with interosseous edema. Posttraumatic edema is appreciated at the base of the 2nd and 3rd metatarsal bones as well as the medial cuneiform without convincing evidence of fracture. Focal fluid collection is appreciated in the calcaneal fat without significant surrounding inflammatory change, intrinsic elevated T2 signal with Iso intense T1 signal. Mild ankle effusion and midfoot effusion is present. LIGAMENTS: Lisfranc ligament: Interosseous and dorsal components of the Lisfranc element are not well demonstrated (with perhaps a few remaining interosseous bands present), edema is present along the expected pathways. Dorsal component of the Lisfranc ligament appears intact. TENDONS: Flexor tendons of foot: Unremarkable. No evidence of tear. Tibialis posterior tendon: Unremarkable as visualized. Peroneal tendons: Unremarkable as visualized. Extensor tendons of foot: Unremarkable. No evidence of tear. Tibialis anterior tendon: Unremarkable as visualized. Tarsal canal (Sinus tarsi): Appears diminutive and collapsed which may be secondary to posttraumatic malalignment. Tarsal tunnel: Unremarkable. Soft tissues: Diffuse soft tissue edema. Plantar fascia: Unremarkable as visualized. IMPRESSION: 1. Complex comminuted fracturing of the navicular bone with interosseous edema. Stable subluxation of the navicular bone with respect of the talus. 2. Avulsion fractures of the lateral and middle cuneiforms with interosseous edema. 3. Osseous contusions of the base of the 2nd and 3rd metatarsal bones as well as the medial cuneiform without obvious fracture. 4. Suspicion injury to the Lisfranc ligament with perhaps a few remaining interosseous bands present. Further details above. 5. Focal fluid collection in the calcaneal fat without significant surrounding inflammatory change, this may represent a hematoma, nonspecific cyst that was there prior to the trauma. Correlate with clinical history and physical exam. 6. Diffuse soft tissue edema and mid foot/ankle effusion. While this is likely posttraumatic, superimposed infection cannot be excluded. Dictated and Authenticated by: Ady Dinh MD. Ordering:ADRIANO Lazar MD
[2023-07-30] MEDS: CEFEPIME 2 GM in Normal Saline 100 ML IVPB ×3 (09:35→23:53)
[2023-07-30] MEDS: amLODIPine 10 MG TAB PO (09:59)
[2023-07-30] MEDS: Lisinopril 20 MG TAB 40 MG PO (09:59)
[2023-07-30] MEDS: Furosemide 40 MG TAB PO (09:59)
--- NOTE | 2023-07-30 13:53 | W.PODCONSULT ---
Date of service: 07/30/23 Time of Service: 12:30 Assessment and Plan Assessment and plan (1) Charcot foot due to diabetes mellitus: Status: Acute (2) Charcot's joint, right ankle and foot: Status: Acute (3) Cellulitis: Status: Acute (4) Pain in right foot: Status: Acute (5) Edema: Status: Acute Assessment and plan: Patient was seen and evaluated today. Images and labs were reviewed. Radiographic findings demonstrate a hypoplastic as well as fragmented navicular with multiple fractures there is collapse of the navicular at the talonavicular naviculocuneiform joint. There is some fluid collection noted on MRI around the navicular however not encapsulated or concerning for an abscess this is likely secondary to Charcot related hyperemia. No evidence for a drainable abscess at this time. I discussed this with the radiology team as well who confirmed absence of a drainable abscess at this time. Patient does have warmth and a focus of increased erythema medially on the right foot this appears concerning for cellulitis. His white count appears to be trending down and he has been on antibiotics. I recommend continued antibiotics for now. I recommended and applied a compression dressing consisting of Kerlix and Coban at 50% overlap. This should help decrease some of the edema and the associated redness. I discussed Charcot in detail with the patient. I discussed the fractures with him as well. Since this is acute charcot, surgical intervention is not indicated. He was advised that there is risk of further collapse to the right foot arch. I further discussed the possibility of a rocker-bottom foot type which typically leads to ulceration infections and amputations. For now, I recommend strict nonweightbearing to the right foot with a CAM boot. He may use a knee scooter or crutches. I recommend applying ice around the ankle and popliteal fossa. No surgical intervention is planned or indicated at this time. Will continue to follow. History of Present Illness Narrative: This is a 57-year-old diabetic male patient with past medical history also significant for hypertension who presented to the ER complaining of right foot and leg pain. He states that the pain began approximately 3 days or so ago. He noticed some swelling to his right leg. He states that yesterday he noticed some redness from the foot as well. He states that he has pain from the midfoot to the mid calf. Pain is worse upon weightbearing. Denies acute injury. Denies any recollection of a subtle injury either. Review of Systems Constitutional Constitutional: Reports as per HPI, Denies chills, Denies fever(s) and Denies night sweats Cardiovascular Cardiovascular: Reports pedal edema Musculoskeletal Comments: Pain in right foot Neurologic Comments: LOPS BLE PFSH All Active Problems (Updated 07/30/23 @ 14:04 by Tesha Quinones DPM) Edema (Acute) Pain in right foot (Acute) Charcot's joint, right ankle and foot (Acute) Charcot foot due to diabetes mellitus (Acute) HTN (hypertension) (Chronic) Closed navicular fracture of right foot (Acute) Closed fracture of fifth toe of right foot (Acute) Peripheral neuropathy (Acute) Closed dislocation of navicular bone of right foot (Acute) Diabetes (Chronic) Cellulitis (Acute) Right leg swelling (Acute) GERD (gastroesophageal reflux disease) (Chronic) Medical History Myocardial infarction Surgical History S/P cholecystectomy S/P appendectomy Social History Smoking/Tobacco Use Status: Current every day Tobacco Type: cigarettes Smoking risk assessment performed?: Yes Alcohol Intake: current Alcohol Intake frequency: holidays/special occasions only Alcohol type: beer Drug use: Never Substance use type: does not use Housing: homeless Do you feel safe at home: Yes Do you feel safe in your relationship?: Yes Additional Social history: pt has job and medication list Exam Extrem Other: Bilateral lower extremity physical exam: Vascular: Edema noted to the right lower extremity. Pulses are palpable to DP bilaterally, palpable PT to the left nonpalpable to the right likely secondary to edema. Increased warmth noted to the right foot. Hair growth is absent to the right lower extremity. No tightness reported to the right lower extremity to suggest compartment syndrome. MSK: Slightly decreased plantar medial arch to the right as compared to the left. There is pain on palpation with weightbearing and ambulation noted to the right foot worse to the medial midfoot of the right, pain reported to the right calf as well. Patient is able to wiggle his toes. Neuro: Light touch sensation noted to be absent bilaterally Results Last Vital Signs Temp 98.8 F 07/30/23 11:11 Pulse 80 07/30/23 11:11 Resp 18 07/30/23 11:11 BP 148/92 H 07/30/23 11:11 Pulse Ox 100 07/30/23 11:11 Labs 07/30/23 05:48 07/30/23 05:48 Labs: Laboratory Results - last 24 hr 07/29/23 07/30/23 17:19 05:48 WBC 11.74 H 9.18 RBC 4.17 L 3.91 L Hgb 12.5 L 11.7 L Hct 37.6 L 35.3 L MCV 90 90 MCH 30.0 29.9 MCHC 33.2 33.1 RDW 12.6 12.6 Plt Count 201 179 MPV 9.4 10.0 Immature Gran % 0.3 Neutrophils % 75.2 Lymphocytes % 11.3 Monocytes % 9.3 Eosinophils % 3.6 Basophils % 0.3 Nucleated RBC % 0.0 Absolute Neutrophils 8.83 H Absolute Lymphocytes 1.33 Absolute Monocytes 1.09 H Absolute Eosinophils 0.42 Absolute Basophils 0.04 ESR 52 H Sodium 142 143 Potassium 3.5 3.2 L Chloride 104 105 Carbon Dioxide 28.4 29.5 Anion Gap 9.6 8.5 BUN 22 H 19 H Creatinine 1.3 1.3 Est GFR (CKD-EPI 2020) 64.07 64.07 Glucose 168 H 181 H Hemoglobin A1c 6.9 H Calcium 9.0 8.7 Magnesium 1.6 L 1.6 L Total Bilirubin 1.2 H AST 20 ALT 26 Alkaline Phosphatase 103 C-Reactive Protein 8.21 H Total Protein 7.7 Albumin 3.6 Add-On Test Request DONE Imaging Imaging Studies: Patient Name: Efren Cui Unit #: [id number] Loc: ER Ordering Provider: Estelita Wilson M.D. Primary Care Provider: Unknown,Unknown Date of Exam: 07/29/23 Sex: M Admission Date: 07/29/23 : 1965 Age: 57 Exam(s) XR FOOT RT COMPLETE EXAM: XR FOOT RT COMPLETE CLINICAL HISTORY: swelling. TECHNIQUE: 2D digital imaging was performed of the right foot. Three images were obtained. AP, oblique and lateral views were obtained. COMPARISON: No exams were available for comparison FINDINGS: BONES: No acute fracture is present. No bony destructive lesion is seen. There is a small plantar calcaneal spur. JOINTS: The navicular is medially and proximally displaced with subluxation of the talonavicular joint. On the lateral view, there are several osseous fragments seen distal to the talus in the site where the navicular should lie. These may reflect fracture fragments. There is a triangular well corticated bony density on the dorsum of the foot at the tarsometatarsal joints which appears old. SOFT TISSUE: There is soft tissue swelling over the metatarsophalangeal joint region. No radiopaque foreign bodies are seen. IMPRESSION: Medial rotation and displacement of the navicular bone with subluxation of the talonavicular joint. A CT scan of the foot is recommended for further evaluation. Findings were discussed with Dr. Wilson at 6:20 p.m. on 07/29/2023. Patient Name: Efren Cui Unit #: [id number] Loc: [place] Ordering Provider: Estelita Wilson M.D. Status: ADM IN Primary Care Provider: Unknown,Unknown Date of Exam: 07/29/23 Sex: M : 1965 Age: 57 Exam(s) a CT:CT lower extremity RT wo Exam(s) CT LOWER EXTREMITY RT WO EXAM: CT LOWER EXTREMITY RT WO CLINICAL HISTORY: foot swelling. TECHNIQUE: Imaging Protocol: Axial computed tomography images with coronal and sagittal reformatted images were created and reviewed. COMPARISON: CR,XR XR FOOT RT COMPLETE from 07/29/2023 FINDINGS: Bones: The navicular bone is rotated medially and subluxed inferiorly and medially radiate relative to the talus. There is a fracture involving the superior medial aspect of the talus. There are several fracture fragments located along the dorsal and lateral aspect of the talonavicular joint. There are tiny fragments seen proximal to the base of the 5th metatarsal bone. These may represent avulsed fracture fragments. There is a small plantar calcaneal spur. There is an enthesophyte at the posterior calcaneus. No lytic or sclerotic lesions are identified. Soft Tissues: Vascular calcifications are present throughout the foot. There is soft tissue swelling of the foot noted. IMPRESSION: 1. Fracture dislocation of the talus as described above. This can be seen with a neuropathic foot. 2. Question of a fracture of indeterminate age involving the base of the 5th metatarsal bone. 3. Vascular calcifications are present throughout the foot. There is soft tissue swelling of the foot. Patient Name: Efren Cui Unit #: [id number] Loc: [place] Ordering Provider: Primary Care Provider: Unknown,Unknown Date of Exam: 07/30/23 Sex: M : 1965 Age: 57 Exam(s) PROCEDURE INFORMATION: Exam: MR Right Lower Extremity Other Than Joint Without and With Contrast; Foot Exam date and time: 07/30/2023 7:26 AM Age: 57 years old Clinical indication: Pain; Swelling, leg or foot; Right; Patient HX: Navicular FX TECHNIQUE: Imaging protocol: Magnetic resonance imaging of the right lower extremity without and with contrast. Exam focused on the foot. Contrast material: DOTAREM; Contrast volume: 20 ml; Contrast route: INTRAVENOUS (IV); COMPARISON: CT LOWER EXTREMITY RT WO 07/29/2023 6:44 PM FINDINGS: Bones/joints: Complex comminuted fracturing of the navicular bone is noted, with interosseous edema. Navicular bone is again subluxed inferiorly with respect to the talus. Additional avulsion fractures of the lateral cuneiform as well as the middle cuneiform are also noted, with interosseous edema. Posttraumatic edema is appreciated at the base of the 2nd and 3rd metatarsal bones as well as the medial cuneiform without convincing evidence of fracture. Focal fluid collection is appreciated in the calcaneal fat without significant surrounding inflammatory change, intrinsic elevated T2 signal with Iso intense T1 signal. Mild ankle effusion and midfoot effusion is present. LIGAMENTS: Lisfranc ligament: Interosseous and dorsal components of the Lisfranc element are not well demonstrated (with perhaps a few remaining interosseous bands present), edema is present along the expected pathways. Dorsal component of the Lisfranc ligament appears intact. TENDONS: Flexor tendons of foot: Unremarkable. No evidence of tear. Tibialis posterior tendon: Unremarkable as visualized. Peroneal tendons: Unremarkable as visualized. Extensor tendons of foot: Unremarkable. No evidence of tear. Tibialis anterior tendon: Unremarkable as visualized. Tarsal canal (Sinus tarsi): Appears diminutive and collapsed which may be secondary to posttraumatic malalignment. Tarsal tunnel: Unremarkable. Soft tissues: Diffuse soft tissue edema. Plantar fascia: Unremarkable as visualized. IMPRESSION: 1. Complex comminuted fracturing of the navicular bone with interosseous edema. Stable subluxation of the navicular bone with respect of the talus. 2. Avulsion fractures of the lateral and middle cuneiforms with interosseous edema. 3. Osseous contusions of the base of the 2nd and 3rd metatarsal bones as well as the medial cuneiform without obvious fracture. 4. Suspicion injury to the Lisfranc ligament with perhaps a few remaining interosseous bands present. Further details above. 5. Focal fluid collection in the calcaneal fat without significant surrounding inflammatory change, this may represent a hematoma, nonspecific cyst that was there prior to the trauma. Correlate with clinical history and physical exam. 6. Diffuse soft tissue edema and mid foot/ankle effusion. While this is likely posttraumatic, superimposed infection cannot be excluded. Dictated and Authenticated by: Ady Dinh MD. Ordering:ADRIANO Lazar MD
--- NOTE | 2023-07-30 15:53 | CHAPLAIN ---
Efren was resting in bed when I visited. He told me he moved here in April from [place] and doesn't have any relatives locally. (According to care management notes, he has a mother in [place], [place]) He was on the phone with friends. Efren said he works at the [employer] and recently tried to get Medicaid, but makes too much to receive Medicaid. He has received food stamps, he said. He's been dealing with leg and foot issues, including a fallen arch. Efren was pleasant and engaged in a conversation but wasn't interested in further conversation.
--- NOTE | 2023-07-30 16:02 | W.PM.PROGNOT ---
Date of Service Date of service: 07/30/23 Time of Service: 10:35 Assessment and Plan Assessment and plan (1) Charcot's joint of right foot: Status: Acute Assessment and plan: Complex fracture and Lisfranc disturbance in setting of longstanding diabetic neuropathy c/w acute Charcot foot. Podiatry consulted who confirms this assessment and rec: non surgical management, non-weight bearing. PT ordered, CAM boot. (2) Cellulitis: Status: Acute Assessment and plan: I wasn't sure if truly cellulitis or redness/swelling related to charcot's foot, but after discussion with Dr. Quinones will continue the antibiotics as there are some signs infection. (3) Diabetes: Status: Chronic Assessment and plan: -continue home levemir 40U HS -A1c 6.9% reflects good chronic control -complicated by lack of insurance (4) HTN (hypertension): Status: Chronic Assessment and plan: -continue home lasix, lisinopril, and amlodipine (5) Discharge planning issues: Status: Acute Assessment and plan: He is [facility]. Working, but ended up with fractures due to walking 3 miles home on neuropathic feet. Per report he doesn't have regular insurance. Will need help with coordinating outpatient plan. Subjective Subjective Patient reports: voiding w/o difficulty; denies nausea, shortness of breath or fever Interval history since last seen: He feels okay. Very hungry. He doesn't feel sick, but is a little lightheaded when he sits up or stands. No chest pain or palpitaitons. Doesn't get pain in his foot. He is worried about his mobility in the future. Exam Narrative Exam Narrative: GEN: Alert and oriented x 4. NAD LUNGS: CTAB, nl effort CV: RRR, no m/g/r abd: soft, NT/ND, no masses Ext: dark erythema in right mid foot, warm. no pockets of purulence palpable. Swelling from ankle down, 1+ on right. left trace with no erythema. No other joint redness/swelling neuro: Diminished sensation from knees down Extrem Other: Bilateral lower extremity physical exam: Vascular: Edema noted to the right lower extremity. Pulses are palpable to DP bilaterally, palpable PT to the left nonpalpable to the right likely secondary to edema. Increased warmth noted to the right foot. Hair growth is absent to the right lower extremity. No tightness reported to the right lower extremity to suggest compartment syndrome. MSK: Slightly decreased plantar medial arch to the right as compared to the left. There is pain on palpation with weightbearing and ambulation noted to the right foot worse to the medial midfoot of the right, pain reported to the right calf as well. Patient is able to wiggle his toes. Neuro: Light touch sensation noted to be absent bilaterally Objective Last Vital Signs Temp 36.8 C 07/30/23 15:52 Pulse 82 07/30/23 15:52 Resp 18 07/30/23 15:52 BP 140/86 07/30/23 15:52 Pulse Ox 97 07/30/23 15:52 Laboratory Results - last 24 hr 07/29/23 07/30/23 17:19 05:48 WBC 11.74 H 9.18 RBC 4.17 L 3.91 L Hgb 12.5 L 11.7 L Hct 37.6 L 35.3 L MCV 90 90 MCH 30.0 29.9 MCHC 33.2 33.1 RDW 12.6 12.6 Plt Count 201 179 MPV 9.4 10.0 Immature Gran % 0.3 Neutrophils % 75.2 Lymphocytes % 11.3 Monocytes % 9.3 Eosinophils % 3.6 Basophils % 0.3 Nucleated RBC % 0.0 Absolute Neutrophils 8.83 H Absolute Lymphocytes 1.33 Absolute Monocytes 1.09 H Absolute Eosinophils 0.42 Absolute Basophils 0.04 ESR 52 H Sodium 142 143 Potassium 3.5 3.2 L Chloride 104 105 Carbon Dioxide 28.4 29.5 Anion Gap 9.6 8.5 BUN 22 H 19 H Creatinine 1.3 1.3 Est GFR (CKD-EPI 2020) 64.07 64.07 Glucose 168 H 181 H Hemoglobin A1c 6.9 H Calcium 9.0 8.7 Magnesium 1.6 L 1.6 L Total Bilirubin 1.2 H AST 20 ALT 26 Alkaline Phosphatase 103 C-Reactive Protein 8.21 H Total Protein 7.7 Albumin 3.6 Add-On Test Request Cancelled Time Spent with Patient Time Spent with Patient: 35-49 minutes Time was spent: preparing to see the patient(eg.review tests), obtaining and/or reviewing separately otained hiistory, ordering medications,tests, procedures, referring, communicating with other health neonatal intensive care nurse, indepentently interpreting results, counseling the patient and care coordination
--- NOTE | 2023-07-30 16:33 | IN_ITS ---
PT Notes Visit Reasons: Right leg cellulitis, possible osteo Physical Therapy Inpatient Initial Evaluation Date: 07/30/2023 Referring Doctor: Jake Bonner MD PT Orders: PT CONSULT: Eval for assistive device. Right foot fx, charcot foot, needs offloaded, crutches per podiatry Precautions: Fall. Standard. Strictly non-weight bearing on the R foot with CAM boot per Dr. Quinones. Patient Profile/Admitting Diagnosis: Milan is a 57-year-old male patient who presented to the ED due to R leg pain and swelling 3 days prior to ED admission. he is admitted to acute level of care for management of cellulitis, charcot foot, med inferior subluxation of the navicular bone, fracture of the lteral aspect of the navicular bone, fracture of the base of the 5th PIP with avulsion fracture on the base of the 5th metatarsal on the R 07/30/2023 MRI impression: 1. Findings suspicious for Charcot foot. 2. There is medial inferior subluxation of the navicular bone relative to the distal talus. 3. There is a fracture of the lateral aspect of the navicular bone. Fracture fragments are seen within the navicular bed. 4. There is fluid seen in the navicular bed which may represent hemorrhage. There is no enhancement to suggest an abscess. 5. Diffuse edema seen in the soft tissues around the foot but no focal fluid collection is seen to suggest an abscess. 07/30/2023 Radiologic report from MRI with and without contrast:: 1. Complex comminuted fracturing of the navicular bone with interosseous edema. Stable subluxation of the navicular bone with respect of the talus. 2. Avulsion fractures of the lateral and middle cuneiforms with interosseous edema. 3. Osseous contusions of the base of the 2nd and 3rd metatarsal bones as well as the medial cuneiform without obvious fracture. 4. Suspicion injury to the Lisfranc ligament with perhaps a few remaining interosseous bands present. Further details above. 5. Focal fluid collection in the calcaneal fat without significant surrounding inflammatory change, this may represent a hematoma, nonspecific cyst that was there prior to the trauma. Correlate with clinical history and physical exam. 6. Diffuse soft tissue edema and mid foot/ankle effusion. While this is likely posttraumatic, superimposed infection cannot be excluded. PMHX: All Active Problems (Updated 07/29/23 @ 22:52 by Nagi Chadwick MD) HTN (hypertension) (Chronic) Closed navicular fracture of right foot (Acute) Closed fracture of fifth toe of right foot (Acute) Peripheral neuropathy (Acute) Closed dislocation of navicular bone of right foot (Acute) Diabetes (Chronic) Cellulitis (Acute) Right leg swelling (Acute) GERD (gastroesophageal reflux disease) (Chronic) Medical History Myocardial infarction Surgical History S/P cholecystectomy S/P appendectomy Social History/Home Situation: Currently living in a homeless detention here in [facility]. Works at [employer] here in [facility]. No stairs to enter detention. Equipment Owned/DME: None Subjective: 4/10 pain in the R foot. Diminished sensation in distal leg and foot. Objective: General Observation: Resting in bed, JOSÉ MIGUEL wraps to R leg and foot. Mental Status: Alert and oriented as to person, place, time, and purpose. Able to pay attention, focus, and respond appropriately. Pain: As above Vital Signs: WNL as closely monitored by nursing staff ROM: Right Lower Extremity: Hip flexion WFL. Hip abduction WFL. Knee flexion WFL. Ankle dorsiflexion NT. Ankle plantarflexion NT. Left Lower Extremity: Hip flexion WFL. Hip abduction WFL. Knee flexion WFL. Ankle dorsiflexion WFL. Ankle plantarflexion WFL. Strength: Right Lower Extremity: Hip flexors 4/5. Hip abductors 4/5. Knee flexors 5/5. Knee extensors 4/5. Ankle dorsiflexors NT. Ankle plantarflexors NT. Left Lower Extremity: Hip flexors 4/5. Hip abductors 4/5. Knee flexors 5/5. Knee extensors 5/5. Ankle dorsiflexors 5/5. Ankle plantarflexors4 /5. Bed Mobility/Transfers: Minimal cueing provided for use of B hands as needed for support, movement sequence, AD management, and posture to reduce fall risk and minimize pain report Rolling independent Supine to sit independent Sit to supine independent Sit to stand minimal assist using FWW Stand to sit minimal assist using FWW Bed to bedside contact guard assist with FWW Bedside commode contact guard assist with FWW Bed to reclining chair contact guard assist with FWW Reclining chair to bed contact guard assist with FWW Gait: Facilitated safe and correct performance of short in-room ambulation of 8 steps with NWB on the R LE with CAM boot on. Moderate cueing provided for safe gait pattern, AD management, WB recommendation, and posture. Minimal assist provided. Balance: Static Sitting: Normal Dynamic Sitting: Normal Static Standing: Fair Dynamic Standing: Fair Special Tests: Mobility Limitations Standardized Measure [facility] AM-PAC 6 clicks Basic Mobility Inpatient Short Form: Raw Score: 18 CMS Score: 47% deficit Informed Consent/Education: Patient was instructed in purpose of PT consult and plan of care. Agreeable to proceed with established PT POC to achieve personal goals. ASSESSMENT: Patient with multiple R ankle and foot derangement being managed conservatively at this time. He requires assist of 1 using bilateral axillary crutches with NWB on the R using CAM boot. Will assess for use of a knee scooter to maximize independence while reducing fall risk. Patient presents with clinical signs and symptoms consistent with current/admitting diagnoses that have resulted to mobility limitations, gait instability, generalized weakness, and overall ADL decline as demonstrated by the following impairment level findings: 1. Decreased strength to R ankle major muscle groups 2. Impaired sitting/standing balance 3. Impaired activity tolerance 4. Limitation of joint range of motion in R knee 5. Pain and swelling in R ankle and foot Impairments are contributing to the following functional limitations: 1. Decline in bed mobility skills 2. Decline in transfer skills 3. Difficulty with ambulation without assistive device and physical assistance 4. Increased completion time for mobility ADL performance 5. Increased risk for falls 6. Difficulty with managing steps alone safely Patient is assessed as a 53859 moderate complexity based on the following: History: 57-year-old male with past medical history as indicated above Examination: Demonstrable impairment in strength, balance, and mobility level with underlying impairments and functional limitations as exhibited above as well as deficit score of 47% utilizing the [facility] Mobility Inpatient Short Form Presentation: Evolving Decision Makin moderate complexity Goals: Goals X1 week 1. Supine-Sit independent 2. Sit-Supine independent 3. Sit-Stand independent 4. Stand-Sit independent with knee scooter 5. Bed-Chair independent with knee scooter 6. Chair-Bed independent with knee scooter 7. Independent gait on level surface with use of knee scooter for at least 300 feet without report of pain nor dyspnea 8. Independent with home exercise program 9. Good static and dynamic standing balance/tolerance Plan of Care/Treatment Plan: 1-2x/day, 7 days/week x 1 week. Plan of care has been reviewed with the CHIEF MERCHANDISING OFFICER providing the service under Physical Therapy direction. Initiate Physical Therapy intervention for pain management as needed, strengthening, bed mobility, transfers, gait, stairs, balance training, and use of assistive device. DISCHARGE RECOMMENDATIONS: [] Home with no services [] [X] Home with services. Patient will benefit from home health PT services in order to progress mobility level using least restrictive assistive ambulatory device, assess home safety, identify additional equipment needs, and establish a functional maintenance program that will increase ability of patient to remain at home. [] Home with outpatient PT [] [] SNF for continued rehabilitation [] [] Half-Way [facility] [] [] SNF versus LTC based on ability to participate and progress [] TREATMENT CODE/TIME: 82111 x 30 minutes for 1 unit, 62828 x 27 minutes for minutes (16:33-17:30). Thank you for the opportunity to participate in the care of this patient. Christine Cavazos PT, DPT, CLT [facility] [place], [place]
[2023-07-30] MEDS: Insulin Aspart 300 UNITS/3 ML PEN SC (17:28)
[2023-07-30] MEDS: Potassium Chloride 20 MEQ TABCR 40 MEQ PO (18:09)
[2023-07-30] MEDS: MAGNESIUM SULFATE 2 GM/50 ML BAG IVINF (18:59)
[2023-07-30] MEDS: Atorvastatin 40 MG TAB PO (21:07)
[2023-07-30] MEDS: Ibuprofen 600 MG TAB PO (23:51)
[2023-07-31 03:18] VITALS: BP 153/83; PULSE 73; RESP 18; TEMP 36.7; O2SAT 98
[2023-07-31 07:04] LABS: Abs Immature Grans 0.02 10^3/uL (0.0-0.06); Absolute Basophil Count 0.07 10^3/uL (0.0-0.2); Absolute Eosinophil Count 1.16 10^3/uL (0.0-0.7); Absolute Lymphocyte Count 1.75 10^3/uL (1.2-3.4); Absolute Monocyte Count 0.86 10^3/uL (0.1-0.8); Absolute Neutrophil Count 6.93 10^3/uL (1.2-6.7); Basophils % 0.6 %; Eosinophils % 10.8 %; HCT 40.9 % (40.0-50.0); HGB 14.1 g/dL (13.5-17.5); Immature Grans % 0.2 %; Lymphocytes % 16.2 %; MCH 30.6 pg (27.0-33.0); MCHC 34.5 % (32.0-36.0); MCV 89 fL (80-95); MPV 9.8 fL (8.0-11.0); Neutrophils % 64.2 %; Platelet Count 243 10^3/uL (130-400); RBC 4.61 10^6/uL (4.36-5.78); RDW 12.5 % (11.8-14.1); RDW-SD 41.2 fL; WBC 10.79 10^3/uL (4.4-10.8)
[2023-07-31 07:15] LABS: Anion Gap 9.8 mmol/L (3-11); BUN 19 mg/dL (7-18); CO2 29.2 mmol/L (21.0-32.0); CREATININE 1.3 mg/dL (0.70-1.30); Calcium 9.4 mg/dL (8.5-10.1); Chloride 106 mmol/L (98-107); Estimated GFR 64.07 (mL/min/1.73m2); Glucose 115 mg/dL (74-106); Potassium 3.8 mmol/L (3.5-5.1); Sodium 145 mmol/L (136-145)
[2023-07-31 07:16] LABS: Magnesium 2.2 mg/dL (1.8-2.4)
[2023-07-31 07:40] VITALS: BP 144/84; PULSE 70; RESP 18; TEMP 36.7; O2SAT 96
[2023-07-31] MEDS: Furosemide 40 MG TAB PO (08:08)
[2023-07-31] MEDS: Ibuprofen 600 MG TAB PO (08:08)
[2023-07-31] MEDS: Lisinopril 20 MG TAB 40 MG PO (08:08)
[2023-07-31] MEDS: amLODIPine 10 MG TAB PO (08:08)
[2023-07-31] MEDS: CEFEPIME 2 GM in Normal Saline 100 ML IVPB ×2 (08:10→15:59)
[2023-07-31] MEDS: Normal Saline Flush 10 ML SYR IVP ×3 (08:11→20:45)
--- NOTE | 2023-07-31 10:02 | PDOC.CMPRO ---
Date of service: 07/31/23 Time of Service: 10:02 Care Management Progress Note Progress Note Text Progress Note Text: S/O:Milan was sitting up in bed when CM met with him. He was polite and courteous and engaged easily with CM. Milan [facility]. He stated that it is much better than most shelters and he does have a room to himself. The biggest issue for him is that all the rooms are open to a public area and have no doors. 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 Still, he stated that he is very grateful for having the room and for the food he gets. Milan is going to be non-weightbearing for the foreseeable future. He is to wear a cam boot at all times and may use crutches or a scooter to get around. Milan does not have any insurance so obtaining a scooter would have been problematic, however the PT department had one donated to them which they gave to Milan. Again, he expressed great appreciation for this as it will make activity much more manageable. Milan is likely to be discharged back to the correction tomorrow. A:Efren is a 57 chirag old man admitted on 07/29/23 with cellulitis P:Anticipate Efren will discharge back to the homeless correction where he resides when medically cleared for discharge. He will follow up with community providers and his discharge plan of care as instructed. He will transport via [facility] private vehicle. CM will follow and continue to support discharge planning. SDOH(Care Management) Screening Will the Patient Participate in the Screening?: Declined to provide Do you worry about having a steady place to live?: choose not to answer Social Determinants of Health Comments(SDOH Details): Patient lives in homeless correction at this moment.
[2023-07-31 10:59] VITALS: BP 122/79; PULSE 72; RESP 18; TEMP 36.7; O2SAT 98
[2023-07-31] MEDS: Pantoprazole 40 MG TABCR PO ×2 (11:26→20:46)
[2023-07-31] MEDS: Insulin Aspart 300 UNITS/3 ML PEN SC ×2 (12:03→17:26)
--- NOTE | 2023-07-31 13:55 | W.PM.PROGNOT ---
Date of Service Date of service: 07/31/23 Time of Service: 11:45 Assessment and Plan Assessment and plan (1) Charcot foot due to diabetes mellitus: Status: Acute (2) Charcot's joint, right ankle and foot: Status: Acute (3) Cellulitis: Status: Acute (4) Pain in right foot: Status: Acute (5) Edema: Status: Acute Assessment and plan: Patient was seen and evaluated today. Images and labs were reviewed. There is slight decrease in erythema noted today. Edema and warmth persist. Tenderness to palpation persist however there is no induration, no crepitus no fluctuance no open lesion to suggest an underlying abscess however if an abscess cannot be ruled out. I recommend continued antibiotics for at least another week. I recommended compression. I recommend rest ice elevation. He is to remain strictly nonweightbearing to the right foot. Patient was advised on risk for further collapse with any amount of weightbearing to the right foot. He is to keep the cam boot on to protect the right foot should he accidentally trip or fall. May use crutches or knee scooter. Patient is okay to be discharged from a podiatric standpoint no surgical intervention is planned or indicated at this time. Patient has to follow-up with me in office within 1 week of discharge Subjective Subjective Interval history since last seen: Patient is seen this side today resting comfortably. Offers no other pedal complaints. Continues to report pain. Denies any worsening. He is seen for is not elevated today Exam Extrem Other: Bilateral lower extremity physical exam: Vascular: Edema noted to the right lower extremity. Pulses are palpable to DP bilaterally, palpable PT to the left nonpalpable to the right likely secondary to edema. warmth noted to the right foot. Hair growth is absent to the right lower extremity. No tightness reported to the right lower extremity to suggest compartment syndrome. MSK: Slightly decreased plantar medial arch to the right as compared to the left. There is pain on palpation with weightbearing and ambulation noted to the right foot worse to the medial midfoot of the right, pain reported to the right calf as well. Patient is able to wiggle his toes. Neuro: Light touch sensation noted to be absent bilaterally Derm: Slight erythema noted to the medial aspect of the right foot with tenderness to palpation however no crepitus no fluctuance no bogginess no open lesion or ulceration, less erythema noted today as compared to previously. Objective Last Vital Signs Temp 98.1 F 07/31/23 10:59 Pulse 72 07/31/23 10:59 Resp 18 07/31/23 10:59 BP 122/79 07/31/23 10:59 Pulse Ox 98 07/31/23 10:59 Laboratory Results - last 24 hr 07/30/23 07/31/23 05:48 06:17 WBC 10.79 RBC 4.61 Hgb 14.1 D Hct 40.9 MCV 89 MCH 30.6 MCHC 34.5 RDW 12.5 Plt Count 243 MPV 9.8 Immature Gran % 0.2 Neutrophils % 64.2 Lymphocytes % 16.2 Monocytes % 8.0 Eosinophils % 10.8 Basophils % 0.6 Nucleated RBC % 0.0 Absolute Neutrophils 6.93 H Absolute Lymphocytes 1.75 Absolute Monocytes 0.86 H Absolute Eosinophils 1.16 H Absolute Basophils 0.07 Sodium 145 Potassium 3.8 Chloride 106 Carbon Dioxide 29.2 Anion Gap 9.8 BUN 19 H Creatinine 1.3 Est GFR (CKD-EPI 2020) 64.07 Glucose 115 H Calcium 9.4 Magnesium 2.2 Add-On Test Request Cancelled Time Spent with Patient Time Spent with Patient: >50 minutes Time was spent: preparing to see the patient(eg.review tests), obtaining and/or reviewing separately otained hiistory, ordering medications,tests, procedures, referring, communicating with other health medical care evaluation specialist, indepentently interpreting results, counseling the patient and care coordination
--- NOTE | 2023-07-31 13:58 | PT.INTREAT ---
PT Notes Visit Reasons: Right leg cellulitis, possible osteo Date: 07/31/23 PRECAUTIONS: Fall. Standard. Strictly non-weight bearing on the R foot with CAM boot per Dr. Quinones. SUBJECTIVE: Pt in bed when approached for therapy, agreed to trying out Cam boots and participating with gait training. Pt in bed when approached for therapy this afternoon, agreed to participating with session. OBJECTIVE: ?Right foot bandaged ? PAIN: yes on right foot VITALS: monitored by nursing? Therapeutic Activities 43002: Direct one-on-one instruction in dynamic activities to improve functional performance. ?? BED MOBILITY/TRANSFERS? Rolling L/R: SBA Supine-sit: ?SBA ? Sit-supine: ?SBA ? Sit-stand: ?CGA ? Stand-sit: ?CGA ? Bed-Chair:? CGA? Chair-bed: CGA Provided skilled cues and instruction on performance and technique throughout. Gait Training 31264: Direct one-on-one instruction and skilled instruction in: Employing an assistive device Modified weight-bearing status Movement sequencing Turning and movement with proper form Provided verbal cues for equipment management and technique Provided instruction in gait pattern Patient education regarding pacing and breathing techniques to maximize activity tolerance? GAIT? Assistive Device: ?? Bilateral crutches ? Weight bearing: non-weight bearing on the R foot with CAM boot Assist: CGA? Distance:??25'x2 seated rest break in between (am), 50' (pm)? Deviation: ?slow cory, short step length, shaky ? ASSESSMENT:?Pt able to perform 3 point gait using crutch with instructions for proper gait sequence and positioning, pt able to improve on gait distance without seated rest break in the afternoon, pt expressed being anxious about using crutches by himself. PLAN: Continue with balance training, global strengthening and general conditioning for improved safety, mobility and activity tolerance until pt is ready for DC. TREATMENT CODE/TIME: 35650h3, 46741w2 30mins (10:05-10:35am) 75255l2, 15542q5 25mins (3:30-3:55pm)
[2023-07-31 15:06] VITALS: BP 131/83; PULSE 70; RESP 18; TEMP 36.7; O2SAT 97
--- NOTE | 2023-07-31 17:13 | PGE_ITS ---
Date of Service Date of service: 07/31/23 Time of Service: 17:13 Assessment and Plan Assessment and plan (1) Charcot's joint of right foot: Status: Acute Assessment and plan: Complex fracture and Lisfranc disturbance in setting of longstanding diabetic neuropathy c/w acute Charcot foot. Podiatry Joni consulted who confirms this assessment and rec: non surgical management, non-weight bearing. PT ordered, CAM boot, has knee scooter. (2) Cellulitis: Status: Acute Assessment and plan: I wasn't sure if truly cellulitis or redness/swelling related to charcot's foot, but after discussion with Dr. Quinones will continue the antibiotics as there are some signs infection, though clearly improving. Will continue IV antibiotics until tomorrow, then home on oral doxycycline with follow up (3) Diabetes: Status: Chronic Assessment and plan: -continue home levemir 40U HS -A1c 6.9% reflects good chronic control -complicated by lack of insurance (4) HTN (hypertension): Status: Chronic Assessment and plan: -continue home lasix, lisinopril, and amlodipine (5) Discharge planning issues: Status: Acute Assessment and plan: [facility] Working, but ended up with fractures due to walking 3 miles home on neuropathic feet. Per report he doesn't have regular insurance. Case discussed with CM. Subjective Subjective Patient reports: no new complaints, tolerating a regular diet and voiding w/o difficulty; denies diarrhea, nausea, vomiting, shortness of breath or fever Interval history since last seen: He is feeling okay. Frustrated about not being able to walk. Worried about situation going home. Exam Narrative Exam Narrative: GEN: Alert and oriented x 4. NAD LUNGS: CTAB, nl effort CV: RRR, no m/g/r abd: soft, NT/ND, no masses Ext: state trooper erythema in right mid foot, warm. no pockets of purulence palpable. Swelling from ankle down, 1+ on right. left trace with no erythema. No other joint redness/swelling neuro: Diminished sensation from knees down Extrem Other: Bilateral lower extremity physical exam: Vascular: Edema noted to the right lower extremity. Pulses are palpable to DP bilaterally, palpable PT to the left nonpalpable to the right likely secondary to edema. warmth noted to the right foot. Hair growth is absent to the right lower extremity. No tightness reported to the right lower extremity to suggest compartment syndrome. MSK: Slightly decreased plantar medial arch to the right as compared to the left. There is pain on palpation with weightbearing and ambulation noted to the right foot worse to the medial midfoot of the right, pain reported to the right calf as well. Patient is able to wiggle his toes. Neuro: Light touch sensation noted to be absent bilaterally Derm: Slight erythema noted to the medial aspect of the right foot with tenderness to palpation however no crepitus no fluctuance no bogginess no open lesion or ulceration, less erythema noted today as compared to previously. Objective Last Vital Signs Temp 36.7 C 07/31/23 15:06 Pulse 70 07/31/23 15:06 Resp 18 07/31/23 15:06 BP 131/83 07/31/23 15:06 Pulse Ox 97 07/31/23 15:06 Laboratory Results - last 24 hr 07/31/23 06:17 WBC 10.79 RBC 4.61 Hgb 14.1 D Hct 40.9 MCV 89 MCH 30.6 MCHC 34.5 RDW 12.5 Plt Count 243 MPV 9.8 Immature Gran % 0.2 Neutrophils % 64.2 Lymphocytes % 16.2 Monocytes % 8.0 Eosinophils % 10.8 Basophils % 0.6 Nucleated RBC % 0.0 Absolute Neutrophils 6.93 H Absolute Lymphocytes 1.75 Absolute Monocytes 0.86 H Absolute Eosinophils 1.16 H Absolute Basophils 0.07 Sodium 145 Potassium 3.8 Chloride 106 Carbon Dioxide 29.2 Anion Gap 9.8 BUN 19 H Creatinine 1.3 Est GFR (CKD-EPI 2020) 64.07 Glucose 115 H Calcium 9.4 Magnesium 2.2 Time Spent with Patient Time Spent with Patient: 35-49 minutes Time was spent: preparing to see the patient(eg.review tests), obtaining and/or reviewing separately otained hiistory, ordering medications,tests, procedures, referring, communicating with other health laboratory animal caretaker, indepentently interpreting results and counseling the patient
[2023-07-31] MEDS: Enoxaparin 40 MG/0.4 ML SYR SC (18:01)
[2023-07-31 19:44] VITALS: BP 142/80; PULSE 76; RESP 18; TEMP 36.4; O2SAT 99
[2023-07-31] MEDS: Atorvastatin 40 MG TAB PO (20:45)
[2023-08-01 00:23] VITALS: BP 149/82; PULSE 76; RESP 16; TEMP 36.5; O2SAT 96
[2023-08-01] MEDS: CEFEPIME 2 GM in Normal Saline 100 ML IVPB ×2 (01:29→10:13)
[2023-08-01] MEDS: Ibuprofen 600 MG TAB PO ×2 (01:38→08:35)
[2023-08-01 04:56] VITALS: BP 131/76; PULSE 94; RESP 18; O2SAT 95
[2023-08-01 09:48] VITALS: BP 141/82; PULSE 82; RESP 19; TEMP 36.9; O2SAT 93
[2023-08-01] MEDS: Furosemide 40 MG TAB PO (10:11)
[2023-08-01] MEDS: amLODIPine 10 MG TAB PO (10:11)
[2023-08-01] MEDS: Normal Saline Flush 10 ML SYR IVP (10:11)
[2023-08-01] MEDS: Lisinopril 20 MG TAB 40 MG PO (10:11)
[2023-08-01] MEDS: Pantoprazole 40 MG TABCR PO (10:15)
[2023-08-01 11:06] VITALS: BP 149/86; PULSE 69; RESP 17; TEMP 36.6; O2SAT 98
--- NOTE | 2023-08-01 11:37 | PT.INTREAT ---
PT Notes Visit Reasons: Right leg cellulitis, possible osteo Date: 08/01/23 PRECAUTIONS: Fall. Standard. Strictly non-weight bearing on the R foot with CAM boot per Dr. Quinones. SUBJECTIVE: pt in bed when approached for therapy session this morning, reports a massive headache, has been having headache since he woke up this morning, has taken tylenol for the pain, pt agreed to participating with session. OBJECTIVE: ?Right foot bandaged ? PAIN: yes on right foot and headache VITALS: monitored by nursing? Therapeutic Activities 02570: Direct one-on-one instruction in dynamic activities to improve functional performance. ?? BED MOBILITY/TRANSFERS? Rolling L/R: SBA Supine-sit: ?SBA ? Sit-supine: ?SBA ? Sit-stand: ?CGA ? Stand-sit: ?CGA ? Bed-Chair:? CGA? Chair-bed: CGA Provided skilled cues and instruction on performance and technique throughout. Gait Training 06939: Direct one-on-one instruction and skilled instruction in: Employing an assistive device Modified weight-bearing status Movement sequencing Turning and movement with proper form Provided verbal cues for equipment management and technique Provided instruction in gait pattern Patient education regarding pacing and breathing techniques to maximize activity tolerance? GAIT? Assistive Device: ??knee scooter? Weight bearing: non-weight bearing on the R foot with CAM boot Assist: SBA ? Distance:??100'? Deviation: ?non-weight bearing on the R foot with CAM boot ? ASSESSMENT:?Pt setup for scooter height, and pt education for proper usage and safety with scooter usage. PLAN: Pt possible DC to home later in the afternoon with HHPT recommendation. TREATMENT CODE/TIME: 48740v9, 01419k0 30mins (9:25-10:00am)
--- NOTE | 2023-08-01 11:49 | W.PM.PROGNOT ---
Date of Service Date of service: 08/01/23 Time of Service: 09:00 Assessment and Plan Assessment and plan (1) Charcot foot due to diabetes mellitus: Status: Acute (2) Charcot's joint, right ankle and foot: Status: Acute (3) Cellulitis: Status: Acute (4) Pain in right foot: Status: Acute (5) Edema: Status: Acute Assessment and plan: Patient was seen and evaluated today. Images and labs were reviewed. There is further decrease in erythema noted today. Edema and warmth persist. Tenderness to palpation persist however there is no induration, no crepitus no fluctuance no open lesion to suggest an underlying abscess. I recommend continued antibiotics for at least another week. I recommended compression. I recommend rest ice elevation. He is to remain strictly nonweightbearing to the right foot. Patient was advised on risk for further collapse with any amount of weightbearing to the right foot. He is to keep the cam boot on to protect the right foot should he accidentally trip or fall. May use crutches or knee scooter. Patient is okay to be discharged from a podiatric standpoint no surgical intervention is planned or indicated at this time. Patient has to follow-up with me in office within 1 week of discharge Subjective Subjective Interval history since last seen: Patient was seen bedside today. He reports a headache and nausea. Denies worsening pain to the right foot. He has been keeping the RLE elevated. Exam Extrem Other: Bilateral lower extremity physical exam: Vascular: Edema noted to the right lower extremity. Pulses are palpable to DP bilaterally, palpable PT to the left nonpalpable to the right likely secondary to edema. warmth noted to the right foot. Hair growth is absent to the right lower extremity. MSK: Slightly decreased plantar medial arch to the right as compared to the left. There is pain on palpation with weightbearing and ambulation noted to the right foot worse to the medial midfoot of the right, pain reported to the right calf as well. Patient is able to wiggle his toes. Neuro: Light touch sensation noted to be absent bilaterally Derm: Erythema noted to the medial aspect of the right foot now resolving, with tenderness to palpation however no crepitus no fluctuance no bogginess no open lesion or ulceration, less erythema noted today as compared to previously. Objective Last Vital Signs Temp 97.9 F 08/01/23 11:06 Pulse 69 08/01/23 11:06 Resp 17 08/01/23 11:06 BP 149/86 H 08/01/23 11:06 Pulse Ox 98 08/01/23 11:06 Time Spent with Patient Time Spent with Patient: 25-34 minutes Time was spent: preparing to see the patient(eg.review tests), obtaining and/or reviewing separately otained hiistory, ordering medications,tests, procedures, referring, communicating with other health healthcare representative, indepentently interpreting results, counseling the patient and care coordination
--- NOTE | 2023-08-01 12:22 | CMDISCH_ITS ---
Date of service: 08/01/23 Time of Service: 12:22 LACE Index Scoring Tool Questions: Length of Stay (in days): 3 Was the patient admitted via the E.D.?: Yes Comorbidities: Previous M.I. and Diabetes w/o Complication E.D. Visits: 2 Answers: Total Score: 10 Risk of Readmission: High Risk Care Management Discharge Plan Reason for Hospitalization: Right Leg Cellulites Discharge Plan: [place] will discharge back to the [facility] where he resides with new home health orders for nursing for wound assessments. He will follow up with community providers and his discharge plan of care as instructed. He will transport via [facility] private vehicle coordinated by CM. Patient/Family Education Needs: Review discharge instructions, limitations, medications and plan to follow up with community providers. Discuss ask me three and goals of self care. Services Needed at Discharge: Home Health Care Services and Transportation SDOH Health Related Social Needs: No Data to Display
[2023-08-01] MEDS: Insulin Aspart 300 UNITS/3 ML PEN SC (12:26)
--- NOTE | 2023-08-01 12:27 | DI.RAD_ITS ---
Exam(s) XR FOOT RT COMPLETE EXAM: XR FOOT RT COMPLETE CLINICAL HISTORY: Charcot right foot. TECHNIQUE: 2D digital imaging was performed. Three views. COMPARISON: CR,XR XR FOOT RT COMPLETE from 07/29/2023 MR MR LOWER EXTREMITY RT WO/W from 07/30/2023 FINDINGS: There has been no change in the alignment of the talus compared to the previous exam. Small fracture fragments are again noted at the dorsal lateral aspects of the talus. There are small bony fragment s are seen. Soft tissue swelling remains present. No new abnormalities. IMPRESSION: Stable appearance of talar fracture dislocation. DATA REPOSITORY: RADIATION DOSE DELIVERED:
--- NOTE | 2023-08-01 12:47 | W.PM.DS.N ---
Date of service: 08/01/23 Time of Service: 12:48 DS: Diagnosis Discharge Diagnosis (1) Charcot foot due to diabetes mellitus: Status: Acute (2) Charcot's joint, right ankle and foot: Status: Acute (3) Cellulitis: Status: Acute (4) Edema: Status: Acute Discharge Plan Disposition Patient Disposition: Home W/Home Health Services Condition: Good Discharge Details Reason For Visit: charcot foot Admit Date/Time: 07/29/23 23:17 Admit Provider: Nagi Chadwick Attending Provider: Nagi Chadwick Primary Care Provider: Unknown,Unknown Hospital Course Hospital Course: 57 yo with longstanding type 2 DM with recent good control, diabetic sensory neuropathy, who presented with acute redness, pain, and swelling in the right mid foot. 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 He was started on cefepime for concern for cellulitis. Multiple fractures noted in the midfoot along with possible Lis franc abnormality, raising concern for Charcot foot. Podiatry Dr. Quinones consulted. MRI showed soft tissue edema and hemorrhage, but no abscess. His swelling and redness improved with elevation and compression. Cefepime was continued during the hospitalizaiton in case cellulitis was contributing, and he was discharged with oral SMX/TMP. He never had a fever or white count. He was seen by PT and fitted with rigid CAM boot and crutches as well as a knee scooter. He should be non-weight bearing. Home health ordered for monitoring possible cellulitis and twice weekly compression with Yuridia boot. Home Meds and New Rx's Prescriptions: New sulfamethoxazole-trimethoprim [Bactrim DS] 800-160 mg tablet 1 tab PO BID 7 Days Qty: 14 0RF No Action atomoxetine 60 mg capsule 60 mg PO DAILY pantoprazole 40 mg tablet,delayed release (DR/EC) 40 mg PO DAILY amlodipine 10 mg tablet 10 mg PO DAILY potassium chloride 20 mEq/15 mL liquid 20 meq PO DAILY atorvastatin 40 mg tablet 40 mg PO DAILY furosemide [Lasix] 40 mg tablet 40 mg PO DAILY lisinopril 40 mg tablet 40 mg PO DAILY Levemir FlexPen 100 unit/mL (3 mL) insulin pen 40 unit subcut QHS Discharge Instructions Instructions: Foot Fracture in Adults (GEN) Additional Instructions: Start antibiotics as prescribed. Keep leg elevated is much as possible. Monitor the redness. If symptoms start to worsen, please return for reevaluation. Otherwise please follow-up with your PCP this week for recheck Activity:: non-weight bearing Equipment/Supplies:: knee scooter Diet:: Carb Counting Discharge Orders Discharge Orders: Discharge Order (Routine); Ordered 08/01/23 Ordered By: Jake Bonner DS: Summary Time Spent with Patient providing and/or coordinating discharge services: Greater than 30 minutes Status at Discharge Functional status at discharge: uses cane/walker (knee scooter or crutches) Overall status at discharge: patient is progressing back to baseline Mental Status: mental status grossly normal Speech and Movement: speech and movement normal Mood: congruent mood Affect: normal affect Quality:SDOH Health Related Social Needs: No Data to Display Exam Narrative Exam Narrative: GEN: Alert and oriented x 4. 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 no pockets of purulence palpable. Swelling 1+ right ankle down, left trace with no erythema. No other joint redness/swelling neuro: Diminished sensation from knees down Psych Mental Status: mental status grossly normal Speech and Movement: speech and movement normal Mood: congruent mood Affect: normal affect DS: Data Vitals/I&O Vitals and I&O: Vital Signs Temperature 36.6 C 08/01/23 11:06 Temperature Source Tympanic 08/01/23 11:06 Pulse 69 08/01/23 11:06 Pulse Rhythm Regular 08/01/23 11:04 Respiratory Rate 17 08/01/23 11:06 Respiratory Effort Normal 08/01/23 11:04 Respiratory Depth Normal 08/01/23 11:04 Respiratory Pattern Normal 08/01/23 11:04 Blood Pressure 149/86 H 08/01/23 11:06 Blood Pressure Position Sitting 07/29/23 17:03 Pulse Oximetry 98 08/01/23 11:06 Oxygen Delivery Method Room Air 08/01/23 11:06 Oxygen Flow Rate 0 08/01/23 11:06 Pain Level 0 08/01/23 11:06 Comment pT states pain behind eyes; head ache like 07/31/23 07:40 Intake & Output 07/31/23 08/01/2307/31/24 23:59 11:59 23:59 Intake Total 1260 / 1480 500 / 500 Output Total 300 / 600 300 / 600 Balance 1260 / 1130 200 / -100 -300 / -100 Intake: IV 100 / 320 100 / 100 Oral 1160 / 1160 400 / 400 Output: Urine 300 / 600 300 / 600 Other: Urine Color Yellow Yellow Yellow Urine Appearance Clear Clear Clear Comment Voided to toilet voided in toilet Voiding Methods Toilet Data Completed and Pending Labs on day of discharge: Preliminary micro results at discharge 07/29/23 23:33 Blood Culture - Preliminary Blood NO GROWTH 48 HOURS 07/29/23 17:19 Blood Culture - Preliminary Blood NO GROWTH 48 HOURS [facility] All Active Problems (Updated 07/30/23 @ 16:24 by Jake Bonner) Discharge planning issues (Acute) Charcot's joint of right foot (Acute) Edema (Acute) Pain in right foot (Acute) Charcot's joint, right ankle and foot (Acute) Charcot foot due to diabetes mellitus (Acute) HTN (hypertension) (Chronic) Closed navicular fracture of right foot (Acute) Closed fracture of fifth toe of right foot (Acute) Peripheral neuropathy (Acute) Closed dislocation of navicular bone of right foot (Acute) Diabetes (Chronic) Cellulitis (Acute) Right leg swelling (Acute) GERD (gastroesophageal reflux disease) (Chronic) Medical History Myocardial infarction Surgical History S/P cholecystectomy S/P appendectomy Social History Smoking/Tobacco Use Status: Current every day Tobacco Type: cigarettes Smoking risk assessment performed?: Yes Alcohol Intake: current Alcohol Intake frequency: holidays/special occasions only Alcohol type: beer Drug use: Never Substance use type: does not use Housing: homeless Do you feel safe at home: Yes Do you feel safe in your relationship?: Yes Additional Social history: pt has job and medication list Time Spent with Patient Time Spent with Patient: <45 minutes Time was spent: preparing to see the patient(eg.review tests), obtaining and/or reviewing separately [facility] hiistory, ordering medications,tests, procedures, referring, communicating with other health critical care registered nurse, indepentently interpreting results, counseling the patient and care coordination
--- NOTE | 2023-08-01 12:52 | PDOC.HHF2F_ITS ---
Home Health Referral Home Health Orders Clinical synopsis of why skilled professionals are needed: compression and wound care Medical diagnosis necessitation home health referral: cellulitis, charcot foot with acute fracture and edema, type 2 diabetes with neuropathy Registered Nurse: Check all that apply Assess for exacerbation of medical condition, instruct patient/caregivers on signs and symptoms to report for early detection: Ordered Administer injection as no willing or able caregiver and patient is unable to administer due to: charcot foot with acute fracture and edema Physical Therapist: Check all that apply Increase strength & endurance for safe mobility at home: Ordered To design/establish home maintenance program: Ordered Home safety evaluation and teaching/gait training including stair management (if applicable): Ordered 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 Non-weight bearing) Encounter Date and Reason: I certify that a FTF encounter for this patient was performed on August 01, 2023 and that such encounter was related to the primary reason the patient requires home health services. The encounter was conducted in the following manner: * By me as the certifying physician, WAD BLANKING PRESS ADJUSTER, PA or * By an inpatient physician, WAD BLANKING PRESS ADJUSTER or PA during an inpatient stay who communicated findings to me, Certification And Authentication I certify that I composed the above information based on my clinical judgment relating to this patient's medical condition and, if applicable, clinical findi ngs communicated to me by the NPP or inpatient physician who performed the FTF encounter.
[2023-08-01] MEDS: Loperamide 2 MG CAP PO (15:59)
--- NOTE | 2023-08-03 18:31 | NUR.NOTE ---
Accessed chart for information for [facility] billing. Nursing Note:
== END 2023-08-01 17:11 | disposition home health service (06) | DRG 74 ==
LOC: ER 23:40 → MS 07-30 00:26
PROVIDERS: Family Medicine; Student in an Organized Health Care Education/Training Program; Admitting Provider Family Medicine; Emergency Provider Emergency Medicine; Visit Provider Family Medicine
DX: E11.610 Type 2 diabetes mellitus with diabetic neuropathic arthropathy (principal); L03.115 Cellulitis of right lower limb; Z59.01 Sheltered homelessness; E11.628 Type 2 diabetes mellitus with other skin complications; S92.251A Displaced fracture of navicular [scaphoid] of right foot, initial encounter for closed fracture; S93.314A Dislocation of tarsal joint of right foot, initial encounter; I10 Essential (primary) hypertension; S92.511A Displaced fracture of proximal phalanx of right lesser toe(s), initial encounter for closed fracture; X58.XXXA Exposure to other specified factors, initial encounter; K21.9 Gastro-esophageal reflux disease without esophagitis; E11.42 Type 2 diabetes mellitus with diabetic polyneuropathy; R60.0 Localized edema; I25.2 Old myocardial infarction; F17.210 Nicotine dependence, cigarettes, uncomplicated; Z79.4 Long term (current) use of insulin
CPT/HCPCS: 00123; 36415; 80048; 80053; 85027; 85652; 87040; 96365; 96368; 97116; 97162; 97530; 99285; J1650; 73630; 73700; 73720; 83036; 83735; 85025; 86140; 99223; 99232; 99238; J0692; J1815; J3370; J3475

== ENCOUNTER → 2023-08-26 13:28 | Outpatient (CLI) | payer MEDICAID, SELFPAY ==
--- NOTE | 2023-08-26 13:35 | DI.RAD_ITS ---
Exam(s) XR FOOT RT COMPLETE EXAM: XR FOOT RT COMPLETE CLINICAL HISTORY: Charcot's joint of right foot, M14.671. TECHNIQUE: 2D digital imaging was performed of the right foot. Three images were obtained. AP, obl ique and lateral views were obtained. COMPARISON: CR XR FOOT RT COMPLETE from 08/01/2023 FINDINGS: BONES: There is again seen medial displacement and rotation of the navicular. There are osseous frag ments again seen in the dorsal soft tissues distal to the talus. These may reflect fracture fragment s, possibly from the cuneiform and/or the navicular. No bony destructive lesion is seen. JOINTS: Medial displacement and rotation of the navicular. SOFT TISSUE: Soft tissue swelling of the foot. No radiopaque foreign bodies. IMPRESSION: Stable fracture dislocation of the navicular bone. DATA REPOSITORY: RADIATION DOSE DELIVERED:
== END ==
PROVIDERS: Visit Provider Podiatrist
DX: M14.671 Charcot's joint, right ankle and foot (principal)
CPT/HCPCS: 73630

== ENCOUNTER → 2023-09-10 02:31 | Outpatient (CLI) | payer MEDICAID, SELFPAY ==
--- NOTE | 2023-09-10 08:45 | DI.RAD_ITS ---
Exam(s) XR FOOT RT COMPLETE EXAM: XR FOOT RT COMPLETE CLINICAL HISTORY: Evaluate progress, charcots joint rt foot, M`4.671. TECHNIQUE: 2D digital imaging was performed. Three views. COMPARISON: CR XR FOOT RT COMPLETE from 08/26/2023 FINDINGS: BONES: No acute fracture is present. No bony destructive lesion is seen. Heel spurs again noted. JOINTS: The navicular is again noted to be rotated and displaced medially. There are bony fragment s een dorsally. There is collapse of the plantar arch SOFT TISSUE: Soft tissue swelling greatest dorsally over the metatarsal region. No abnormal gas or f oreign body. IMPRESSION: Stable appearance of Charcot foot. Soft tissue swelling. DATA REPOSITORY: RADIATION DOSE DELIVERED:
== END ==
PROVIDERS: Visit Provider Podiatrist
DX: M14.671 Charcot's joint, right ankle and foot (principal)
CPT/HCPCS: 73630

== ENCOUNTER → 2023-09-24 17:28 | Outpatient (CLI) | payer MEDICAID, SELFPAY ==
--- NOTE | 2023-09-24 14:08 | DI.RAD_ITS ---
Exam(s) XR FOOT RT COMPLETE EXAM: XR FOOT RT COMPLETE CLINICAL HISTORY: Evaluate progress,charcot ines, charcot foot,e11.610,m14.671. TECHNIQUE: 2D digital imaging was performed of the right foot. Three images were obtained. AP, obl ique and lateral views were obtained. COMPARISON: CR XR FOOT RT COMPLETE from 09/10/2023 FINDINGS: BONES: Bony fragments are seen on the dorsal aspect in the region of the talonavicular joint on the l ateral view. No bony destructive lesion is seen. There is again seen in the loss of the normal plant ar arch. There is a small plantar calcaneal spur. There is a small enthesophyte at the posterior ca lcaneus. JOINTS: There is also again seen medial rotation and displacement of the navicular bone. SOFT TISSUE: Vascular calcifications are present. There is diffuse soft tissue swelling of the foot again seen. No radiopaque foreign body is identified. IMPRESSION: There does appear to be stable alignment of the midfoot since 09/10/2023. The findings are suspicious for Charcot foot. DATA REPOSITORY: RADIATION DOSE DELIVERED:
== END ==
PROVIDERS: Visit Provider Podiatrist
DX: M14.671 Charcot's joint, right ankle and foot (principal); E11.610 Type 2 diabetes mellitus with diabetic neuropathic arthropathy
CPT/HCPCS: 73630

== ENCOUNTER → 2023-10-15 01:07 | Outpatient (CLI) | payer MEDICAID, SELFPAY ==
--- NOTE | 2023-10-15 12:28 | DI.RAD_ITS ---
Exam(s) XR FOOT RT COMPLETE EXAM: XR FOOT RT COMPLETE CLINICAL HISTORY: Charcot JOINT RT FOT, M14.671. TECHNIQUE: 2D digital imaging was performed of the right foot. Three images were obtained. AP, obl ique and lateral views were obtained. COMPARISON: CR XR FOOT RT COMPLETE from 09/24/2023 FINDINGS: BONES: There has been no change in alignment of the fracture fragments on the dorsum of the foot. Th ere is also been no change in alignment of the displaced navicular bone. No new fracture is seen. T here is pes planus. There is an enthesophyte at the posterior calcaneus. There is a small plantar c alcaneal spur. JOINTS: Please see the above discussion. SOFT TISSUE: There is soft tissue swelling of the foot. Vascular calcifications are present. IMPRESSION: Stable appearance of the right foot. DATA REPOSITORY: RADIATION DOSE DELIVERED:
== END ==
PROVIDERS: Visit Provider Podiatrist
DX: M14.671 Charcot's joint, right ankle and foot (principal)
CPT/HCPCS: 73630

== ENCOUNTER 2023-11-05 01:59 | Outpatient (CLI) | payer MEDICAID, SELFPAY ==
--- NOTE | 2023-11-05 07:15 | DI.RAD_ITS ---
Exam(s) XR FOOT RT COMPLETE EXAM: XR FOOT RT COMPLETE h CLINICAL HISTORY: changes,charcot foot,closed fx,s92.501a,s92.251a,diabetes,e11.610. TECHNIQUE: 2D digital imaging was performed. COMPARISON: CR XR FOOT RT COMPLETE from 10/15/2023 FINDINGS: 3 views There is again noted prominent soft tissue swelling over the dorsal aspect the foot over metatarsal a kandace. This is unchanged from previous. Again noted is the fractured and displaced navicular and the distal calcaneus is again noted to be al igned with the middle cuneiform with the navicular displaced medially. This again results in element of midfoot collapse and pes planus. The tarsometatarsal joints including the main Lisfranc joint do es not appear displaced. There is a peripherally sclerotic lucent nonexpansile bone lesion again not ed in the lateral cuneiform bone. Relationship of this bone to the base of the 3rd metatarsal remain s normal. On the lateral aspect of the foot there is a 1-2 millimeter osteophytic density again noted just prox imal to the base of the 5th metatarsal and with a corresponding defect in the proximal base of the 5t h metatarsal. This is possibly avulsion injury, unchanged. This is the insertion site of the Peroni is brevis tendon. There are no erosions. A moderate size inferior calcaneal spur is again noted as is an enthesophyte on the posterior calcaneus Achilles insertion site. IMPRESSION: Multilevel findings as above but without significant radiographic change compared to 10/15/2023. DATA REPOSITORY: RADIATION DOSE DELIVERED:
== END 2023-11-05 02:19 ==
LOC: DI 01:59
PROVIDERS: Visit Provider Podiatrist
DX: S92.251D Displaced fracture of navicular [scaphoid] of right foot, subsequent encounter for fracture with routine healing; X58.XXXD Exposure to other specified factors, subsequent encounter
CPT/HCPCS: 73630

== ENCOUNTER 2023-12-17 01:22 | Outpatient (CLI) | payer MEDICAID, SELFPAY ==
--- NOTE | 2023-12-17 13:12 | DI.RAD_ITS ---
Exam(s) XR FOOT RT COMPLETE EXAM: XR FOOT RT COMPLETE CLINICAL HISTORY: monitor for change,charcot joint rt foot,m14.671. TECHNIQUE: 2D digital imaging was performed of the right foot. Three images were obtained. AP, obl ique and lateral views were obtained. COMPARISON: CR XR FOOT RT COMPLETE from 11/05/2023 FINDINGS: There has been no change in alignment of the foot since the prior examination from 11/05/2023. Specif ically the malalignment of the tarsal bones is unchanged. No new fractures identified. There is los s of the normal plantar arch. This is stable. Calcaneal spurs are noted. There is diffuse soft tis bismark swelling of the foot. Vascular calcifications are present. IMPRESSION: Stable alignment of the right foot. DATA REPOSITORY: RADIATION DOSE DELIVERED:
== END 2023-12-17 01:42 ==
LOC: DI 01:22
PROVIDERS: Visit Provider Podiatrist
DX: M14.671 Charcot's joint, right ankle and foot (principal)
CPT/HCPCS: 73630

== ENCOUNTER 2024-01-08 08:13 | Outpatient (CLI) | payer MEDICAID, SELFPAY ==
--- NOTE | 2024-01-08 12:30 | DI.RAD_ITS ---
Exam(s) XR FOOT RT COMPLETE EXAM: XR FOOT RT COMPLETE CLINICAL HISTORY: monitor for changes,CHARCOT JOINT RT FOOT,CHARCOT FOOT,E11.610,M14.671. TECHNIQUE: 2D digital imaging was performed of the right foot. Three images were obtained. AP, obl ique and lateral views were obtained. COMPARISON: CR XR FOOT RT COMPLETE from 12/17/2023 FINDINGS: There has been no change in alignment of the right foot compared to the prior examinations. No new f racture or dislocation is identified. There is soft tissue swelling seen of the right forefoot. No soft tissue gas is seen. Stable calcaneal spurs are seen. IMPRESSION: Stable alignment of the right foot since 12/17/2023. DATA REPOSITORY: RADIATION DOSE DELIVERED:
== END 2024-01-08 08:33 ==
LOC: DI 08:15
PROVIDERS: Visit Provider Podiatrist
DX: M14.671 Charcot's joint, right ankle and foot (principal); E11.610 Type 2 diabetes mellitus with diabetic neuropathic arthropathy
CPT/HCPCS: 73630

== ENCOUNTER 2024-01-10 00:27 | Outpatient (CLI) | payer MEDICAID, SELFPAY ==
--- NOTE | 2024-01-10 | DI.CT_ITS ---
Exam(s) CT ABDOMEN PELVIS W EXAM: CT ABDOMEN PELVIS W CLINICAL HISTORY: DIARRHEA R19.7 TECHNIQUE: Imaging Protocol: Axial computed tomography images with coronal and sagittal reformatted images were created and reviewed. CONTRAST MATERIAL: Intravenous: Omnipaque 350 Contrast volume:100 mL Oral: Yes COMPARISON: No exams were available for comparison FINDINGS: ABDOMEN: Lung Bases: Normal where visualized. Liver: Normal density. No measurable mass. There is a nodular contour of the liver which can be seen with hepatic cirrhosis. Please correlate clinically. Portal, Superior Mesenteric, and Splenic Veins: Unremarkable. Gallbladder and Biliary Tract: Status post cholecystectomy. No biliary ductal dilatation. Pancreas: Normal density, no abnormal calcifications or inflammatory process. Spleen: Normal. Adrenals: The left adrenal gland is unremarkable. There is a 9 mm hypodense nodule in the right adre nal gland. This likely reflects a adrenal adenoma. No follow-up is recommended. Kidneys: Normal size, contour and axis. No radiodense stones or obstructive uropathy. No masses seen. Abdominal Aorta: Abdominal portion non-dilated. Atherosclerotic calcifications are present. Bowel: No obstruction or bowel wall thickening. There is no evidence of appendicitis. The patient ap pears to be status post appendectomy. Peritoneal Cavity: No ascites, collection or mesenteric inflammatory response. No free air. Lymph Nodes: Non-specific mildly enlarged lymph nodes are seen in the upper abdomen. The largest fatoumata sures 1.8 by 0.9 cm. Bones: Within normal limits for the patient's age. Soft Tissues: Unremarkable. PELVIS: Bladder: There is diffuse thickening of the wall of the urinary bladder. Reproductive Organs: The prostate gland is enlarged. Lymph Nodes: Within normal limits. Bones: Within normal limits for the patient's age. IMPRESSION: 1. No evidence of bowel obstruction or bowel wall thickening to suggest inflammation/infection. 2. Enlarged prostate gland. 3. Diffuse thickening of the wall of the urinary bladder. This may be due to underdistention, cystit is or chronic bladder outlet obstruction. Please correlate clinically. 4. There is a nodular contour of the liver. This can be seen with hepatic cirrhosis. Please correla te clinically. No evidence of a hepatic mass. 5. Status post cholecystectomy. No biliary ductal dilatation. RADIATION DOSE DELIVERED: 676.1mGy.cm Total DLP DATA REPOSITORY: All CT scans at this facility are submitted to the National Radiology Data Registry (NRDR) Dose Index Registry (DIR) with the [employer] ([employer]). RADIATION OPTIMIZATION: All CT scans at this facility use at least one of these dose optimization te chniques: automated exposure control; mA and/or kV adjustment per patient size (includes targeted exa ms where dose is matched to clinical indication); or iterative reconstruction.
[2024-01-10] MEDS: Barium Sulfate 2% W/V-Creamy Vanilla Smoothie 450 ML BTL PO ×2 (07:22→07:23)
[2024-01-10 08:01] LABS: ALT 43 U/L (16-63); AST 21 U/L (15-37); Albumin 4.2 g/dL (3.4-5.0); Alkaline Phosphatase 135 U/L (46-116); Anion Gap 14.6 mmol/L (3-11); BUN 30 mg/dL (7-18); Bilirubin, Total 0.81 mg/dL (0.2-1.0); CO2 28.4 mmol/L (21.0-32.0); CREATININE 1.6 mg/dL (0.70-1.30); Chloride 98 mmol/L (98-107); Estimated GFR 49.63 (mL/min/1.73m2); GGT 189 U/L (15-85); Glucose 350 mg/dL (74-106); Lipase 35 U/L (16-77); Sodium 141 mmol/L (136-145); Total Protein 8.6 g/dL (6.4-8.2)
[2024-01-10 08:06] LABS: Calcium 9.5 mg/dL (8.5-10.1)
[2024-01-10] MEDS: Omnipaque 350 MG/ML 100 ML BTL IJ (09:23)
[2024-01-10] MEDS: Normal Saline - Diluent 50 ML VIAL IJ (09:23)
[2024-01-10 18:49] LABS: Hepatitis A Antibody IgM Negative (Negative); Hepatitis B Core Antibody Negative (Negative); Hepatitis B surface Ag Negative (Negative); Hepatitis C Ab w Rflx HCV PCR Negative (Negative)
== END 2024-01-10 00:47 ==
LOC: DI 00:27
PROVIDERS: PCP Nurse Practitioner Family; Visit Provider Nurse Practitioner Family
DX: R19.7 Diarrhea, unspecified (principal)
CPT/HCPCS: 36415; 80053; 83690; 86704; 86709; 86803; 87340; 74177; 82977; J3490

== ENCOUNTER 2024-01-17 01:32 | Outpatient (CLI) | payer MEDICAID, SELFPAY ==
[2024-01-17 14:46] LABS: Anion Gap 9.4 mmol/L (3-11); BUN 20 mg/dL (7-18); CO2 26.6 mmol/L (21.0-32.0); CREATININE 1.7 mg/dL (0.70-1.30); Calcium 9.8 mg/dL (8.5-10.1); Chloride 100 mmol/L (98-107); Estimated GFR 46.15 (mL/min/1.73m2); Glucose 475 mg/dL (74-106); Potassium 4.3 mmol/L (3.5-5.1); Sodium 136 mmol/L (136-145)
== END 2024-01-17 01:33 | disposition home or self-care (01) ==
PROVIDERS: PCP Nurse Practitioner Family; Referring Provider Nurse Practitioner Family; Visit Provider Nurse Practitioner Family
DX: E87.6 Hypokalemia (principal)
CPT/HCPCS: 36415; 80048

== ENCOUNTER 2024-02-04 11:44 | Outpatient (CLI) | payer MEDICAID, SELFPAY ==
--- NOTE | 2024-02-04 10:12 | DI.RAD_ITS ---
Exam(s) XR TOE RT GREAT EXAM: XR TOE RT GREAT CLINICAL HISTORY: Rt foot ulcer w/bone involvement wo evidence of necrosis, cellulitis,L03.90. TECHNIQUE: 2D digital imaging was performed. COMPARISON: CR XR FOOT RT COMPLETE from 01/08/2024 FINDINGS: Lateral view is limited by overlap of the toes. BONES: No acute fracture is present. No bony destructive lesion is seen. JOINTS: Mild alignment at the toes vacuo navicular cuboid region as well as degenerative changes agai n noted. SOFT TISSUE: Marked dorsal soft tissue swelling. No foreign body. IMPRESSION: Marked soft tissue swelling. No evidence of osteomyelitis of the great toe. DATA REPOSITORY: RADIATION DOSE DELIVERED:
== END 2024-02-04 12:04 ==
LOC: DI 11:44
PROVIDERS: PCP Nurse Practitioner Family; Visit Provider Podiatrist
DX: L03.031 Cellulitis of right toe (principal)
CPT/HCPCS: 73660

== ENCOUNTER 2024-03-02 01:38 | Outpatient (CLI) | payer MEDICAID, SELFPAY ==
--- NOTE | 2024-03-02 07:00 | DI.RAD_ITS ---
Exam(s) XR FOOT RT COMPLETE EXAM: XR FOOT RT COMPLETE CLINICAL HISTORY: monitor changes,charcot foot due to diabetes,e11.610. TECHNIQUE: 2D digital imaging was performed. Three views. COMPARISON: CR XR FOOT RT COMPLETE from 01/08/2024 CR XR TOE RT GREAT from 02/04/2024 FINDINGS: BONES: No acute fracture is present. No bony destructive lesion is seen. Heel spurs. JOINTS: Pes planus again noted. No change in intertarsal line. Bony fragments are again noted of do rsal to the level of the talus. The navicular is again noted to be rotated and displaced medially. Degenerative changes in the intertarsal region. SOFT TISSUE: Marked swelling at the dorsum of the foot. Bandage in place. IMPRESSION: Stable findings of Charcot foot. No evidence of osteomyelitis. Prominent dorsal soft tissue [place]in [facility] DATA REPOSITORY: RADIATION DOSE DELIVERED:
== END 2024-03-02 01:58 ==
LOC: DI 01:38
PROVIDERS: PCP Nurse Practitioner Family; Visit Provider Podiatrist
DX: E11.610 Type 2 diabetes mellitus with diabetic neuropathic arthropathy (principal)
CPT/HCPCS: 73630

== ENCOUNTER 2024-03-31 18:28 | Outpatient (REF) | payer MEDICAID, SELFPAY ==
[2024-03-31 21:16] LABS: Abs Immature Grans 0.01 10^3/uL (0.0-0.06); Absolute Basophil Count 0.05 10^3/uL (0.0-0.2); Absolute Eosinophil Count 0.19 10^3/uL (0.0-0.7); Absolute Lymphocyte Count 1.18 10^3/uL (1.2-3.4); Absolute Monocyte Count 0.65 10^3/uL (0.1-0.8); Absolute Neutrophil Count 4.76 10^3/uL (1.2-6.7); Basophils % 0.7 %; Eosinophils % 2.8 %; HCT 39.9 % (40.0-50.0); HGB 13.5 g/dL (13.5-17.5); Immature Grans % 0.1 %; Lymphocytes % 17.3 %; MCH 29.7 pg (27.0-33.0); MCHC 33.8 % (32.0-36.0); MCV 88 fL (80-95); MPV 9.7 fL (8.0-11.0); Monocytes % 9.5 %; Neutrophils % 69.6 %; Platelet Count 221 10^3/uL (130-400); RBC 4.55 10^6/uL (4.36-5.78); RDW 13.1 % (11.8-14.1); RDW-SD 42.3 fL; WBC 6.84 10^3/uL (4.4-10.8)
[2024-03-31 21:39] LABS: ALT 68 U/L (16-63); AST 32 U/L (15-37); Albumin 3.6 g/dL (3.4-5.0); Alkaline Phosphatase 141 U/L (46-116); Anion Gap 7.7 mmol/L (3-11); BUN 26 mg/dL (7-18); Bilirubin, Total 0.63 mg/dL (0.2-1.0); CO2 28.3 mmol/L (21.0-32.0); CREATININE 1.3 mg/dL (0.70-1.30); Calcium 8.9 mg/dL (8.5-10.1); Chloride 107 mmol/L (98-107); Estimated GFR 63.68 (mL/min/1.73m2); Glucose 139 mg/dL (74-106); NT-proBNP 167 pg/mL (<300); Potassium 3.9 mmol/L (3.5-5.1); Sodium 143 mmol/L (136-145); TSH 0.64 uIU/mL (0.36-3.74); Total Protein 7.1 g/dL (6.4-8.2)
== END 2024-03-31 18:29 | disposition home or self-care (01) ==
LOC: LBN 18:28
PROVIDERS: PCP Nurse Practitioner Family; Visit Provider Nurse Practitioner Family
DX: R60.1 Generalized edema (principal)
CPT/HCPCS: 80053; 83880; 84443; 85025

== ENCOUNTER 2024-04-13 01:26 | Outpatient (CLI) | payer MEDICAID, SELFPAY ==
--- NOTE | 2024-04-13 | DI.US_ITS ---
Exam(s) US LOWER EXTREMITY VENOUS RT EXAM: US LOWER EXTREMITY VENOUS RT CLINICAL HISTORY: R60.0 Localized edema TECHNIQUE: Grayscale, color, and doppler imaging of the deep venous system of the right lower extrem ity was performed. COMPARISON: No exams were available for comparison FINDINGS: There is no evidence of intraluminal thrombus and there is normal compression and augmentation demons trated within the common femoral vein, femoral vein, and popliteal vein. In the ipsilateral calf the interrogated veins also exhibit normal compression/ augmentation properti es. The ipsilateral saphenofemoral junction is patent. IMPRESSION: 1. No evidence of DVT in the right lower extremity. DATA REPOSITORY:
== END 2024-04-13 01:46 ==
LOC: DI 01:26
PROVIDERS: PCP Nurse Practitioner Family; Visit Provider Nurse Practitioner Family
DX: R60.0 Localized edema (principal)
CPT/HCPCS: 93971

== ENCOUNTER 2024-07-07 17:30 | Outpatient (REF) | payer MEDICAID, SELFPAY ==
[2024-07-07 19:38] LABS: ALT 59 U/L (16-63); AST 32 U/L (15-37); Albumin 4.1 g/dL (3.4-5.0); Alkaline Phosphatase 121 U/L (46-116); Anion Gap 8.2 mmol/L (3-11); BUN 46 mg/dL (7-18); Bilirubin, Total 0.7 mg/dL (0.2-1.0); CO2 26.8 mmol/L (21.0-32.0); CREATININE 1.4 mg/dL (0.70-1.30); Calcium 9.6 mg/dL (8.5-10.1); Calculated LDL 111 mg/dL (<100); Chloride 107 mmol/L (98-107); Cholesterol 174 mg/dL (<200); Estimated GFR 58.26 (mL/min/1.73m2); Glucose 155 mg/dL (74-106); HDL Cholesterol 50 mg/dL (>or=40); Potassium 4.4 mmol/L (3.5-5.1); Sodium 142 mmol/L (136-145); Total Protein 7.5 g/dL (6.4-8.2); Triglyceride 68 mg/dL (<150)
[2024-07-07 19:49] LABS: Bilirubin Negative (Negative); Blood Negative (Negative); Clarity Clear (Clear); Glucose Negative (Negative); Ketones Negative (Negative); Leukocyte Esterase Negative (Negative); Nitrite Negative (Negative); Specific Gravity 1.015 (1.005-1.025); Urobilinogen 0.2 mg/dL (Up to 0.2); pH 5.5 (5-8)
[2024-07-08 18:46] LABS: PSA, Screening 1.2 ng/mL (<=3.5)
[2024-07-09 10:01] LABS: HIV-1/2 Ag & Ab Screen Negative (Negative)
== END 2024-07-07 17:31 | disposition home or self-care (01) ==
LOC: NCHCN 17:30
PROVIDERS: PCP Nurse Practitioner Family; Visit Provider Family Medicine
DX: N40.0 Benign prostatic hyperplasia without lower urinary tract symptoms (principal); E11.65 Type 2 diabetes mellitus with hyperglycemia; R74.01 Elevation of levels of liver transaminase levels; Z11.4 Encounter for screening for human immunodeficiency virus [HIV]
CPT/HCPCS: 80053; 80061; 84153; 87389; 81003

== ENCOUNTER 2024-07-13 01:52 | Outpatient (CLI) | payer MEDICAID, SELFPAY ==
--- NOTE | 2024-07-13 11:00 | DI.RAD_ITS ---
Exam(s) XR FOOT RT COMPLETE EXAM: XR FOOT RT COMPLETE CLINICAL HISTORY: ? any changed,charcot joint rt foot,m14.671. TECHNIQUE: 2D digital imaging was performed of the right foot. Three images were obtained. AP, obl ique and lateral views were obtained. COMPARISON: CR XR FOOT RT COMPLETE from 03/02/2024 FINDINGS: BONES: No acute fracture is present. No bony destructive lesion is seen. There is a plantar calcaneal spur. There is an enthesophyte at the posterior calcaneus. JOINTS: There is disorganization of the tarsal bones with displacement of the navicular. Bony fragme nts are again seen around the tarsal bones particularly on the dorsum of the foot. There is loss of the normal plantar arch. SOFT TISSUE: There is soft tissue swelling of the foot. IMPRESSION: Overall, the alignment/appearance of the foot is stable. DATA REPOSITORY: RADIATION DOSE DELIVERED:
== END 2024-07-13 02:12 ==
LOC: DI 01:53
PROVIDERS: PCP Nurse Practitioner Family; Visit Provider Podiatrist
DX: M14.671 Charcot's joint, right ankle and foot (principal)
CPT/HCPCS: 73630

== ENCOUNTER 2024-07-13 03:45 | Outpatient (CLI) | payer MEDICAID, SELFPAY ==
--- NOTE | 2024-07-14 11:41 | TELEFU_ITS ---
Date of service: 07/13/24 Time of Service: 14:00 Nutrition Note NOTE: Milan referred for nutrition visit due to hyperglycemia associated with diabetes (6.9% of A1C on 07/30/23). Basal insulin at home (degludec). Relates he feels like he's always been overweight. I shared that having high we ight is fine it is metabolism that we need to address. He shares drinking apple and cranberry juice daily, has trouble sleeping (only 4-5 hours most nights). Reviewed straight shot of fructose from juice is worse than soda at times and suggested avoiding all caloric beverages except black coffee, unsweetened teas and water. We reviewed necessity to know where his fiber and refined starch intake are and try to make improvements with these. Shared with him that his two breakfast sandwiches most mornings are 4 servings of refined carbs and when combined with juice can make for a very metabolically unfriendly meal. He wears boot currently for charcot foot and stresses that movement is limited. I stressed that his concerns can be helped from exercise but his diet is still the main contributor this his problem. We reviewed some sample menus and inexpensive food choices that will improve his overall variety of healthy foods. Milan has my number to contact with any need for more resources. Agreed to phone check-in x1 month and will offer follow up appt if desired. Considerations: addition of SGLT-2i for help with glucose control. Time Spent in Nutritional Counseling and Treatment: 60 min
== END 2024-07-13 03:46 | disposition home or self-care (01) ==
LOC: DS 03:46
PROVIDERS: PCP Nurse Practitioner Family; Visit Provider Dietitian, Registered
DX: E11.9 Type 2 diabetes mellitus without complications (principal)
CPT/HCPCS: 00123; 97802

== ENCOUNTER 2024-08-27 21:59 | Emergency (ER) | payer MEDICAID, SELFPAY ==
[2024-08-27] VITALS (22 sets, daily range): BP systolic 125–167; BP diastolic 60–145; PULSE 65–167; RESP 13–35; TEMP 37.1; O2SAT 83–100
--- NOTE | 2024-08-27 00:39 | DI.CT_ITS ---
Exam(s) CT CHEST/ABD/PEL W EXAM: CT CHEST/ABD/PEL W CLINICAL HISTORY: sepsis, 1 month N/V/D. TECHNIQUE: Imaging Protocol: Axial computed tomography images with coronal and sagittal reformatted images were created and reviewed CONTRAST MATERIAL: Intravenous: Omnipaque 350 Contrast volume:100 ml Oral: None COMPARISON: CT CT ABDOMEN PELVIS W from 01/10/2024 FINDINGS: CHEST: LUNGS: There are no infiltrates nor pleural effusions nor ominous pulmonary nodules.. MEDIASTINUM: There is no hilar nor mediastinal adenopathy. There is a partially calcified nodule in t he left thyroid lobe. CARDIAC: Heart size is normal. There is no pericardial effusion.Caliber of the thoracic aorta is wit hin normal limits. OSSEOUS: No significant osseous lesions.No fractures evident.. ABDOMEN: There is no ascites. LIVER: Enlarged and cirrhotic appearance. No abnormal liver masses seen. No dilated intrahepatic du cts. GALLBLADDER/BILIARY: Gallbladder surgically absent. CBD is not dilated. PANCREAS: No evidence of pancreatic mass nor dilatation of the pancreatic duct. SPLEEN: Splenomegaly. The craniocaudal measurement of the spleen is 13.8 cm which is slightly larger than prior measurements of 01/10/2024. Splenic and portal veins are patent. ADRENALS: Again noted is a 9 mm hypodense nodule in the right adrenal gland which is probably an williams [place]. The left adrenal gland is unremarkable. KIDNEYS: There is mild bilateral perinephric streaking, slightly more so on the right side. No signi ficant cysts in the kidneys. No solid lesions. No calculi. No hydronephrosis. Hydroureter in. Th ere is a catheter in the urinary bladder. Prostate size is mildly prominent. ABDOMINAL AORTA: Abdominal aorta is not enlarged. LYMPH NODES: There are multiple mildly enlarged mesenteric lymph nodes again noted, similar to 2023. There also a few slightly prominent calcified lymph nodes along the distal iliac chains. Ther e is no significant inguinal adenopathy. ABDOMINAL WALL: No evidence of significant anterior abdominal wall nor inguinal hernia. GI: There is no evidence of bowel obstruction. PELVIS: LYMPH NODES: Enlarged bilateral iliac lymph nodes again noted. GI: The appendix is surgically absent.No evidence of sigmoid diverticulitis. URINARY BLADDER: Shabazz catheter in the lumen. The urinary bladder wall is again noted to be diffusel y thickened and prostate is enlarged. REPRODUCTIVE: The prostate gland again noted be enlarged. OSSEOUS: Benign bone island in the right-side of the sacrum is unchanged from 01/10/2024. No new sig nificant bone lesions. No fractures. IMPRESSION: 1. Hepatic cirrhosis with hepatosplenomegaly. The size of the spleen as increased when compared to 1 . There is no ascites. 2. There are enlarged lymph nodes in the mesenteric fat and there few enlarged lymph nodes also noted along the iliac chains, these findings similar to the previous CT scan of 01/10/2024. 3. The urinary bladder wall is diffusely thickened, similar to previous, and there is a catheter in t he urinary bladder. The prostate gland is again noted to be enlarged. 4. Again noted is evidence of prior cholecystectomy and appendectomy. No evidence of bowel obstructi on, free air, nor abscess. The preliminary virtual Radiology report was reviewed RADIATION DOSE DELIVERED: 1,431.31mGy.cm Total [facility]LP DATA REPOSITORY: All CT scans at this facility are submitted to the National Radiology Data Registry (NRDR) Dose Index Registry (DIR) with the [employer] ([employer]). RADIATION OPTIMIZATION: All CT scans at this facility use at least one of these dose optimization te chniques: automated exposure control; mA and/or kV adjustment per patient size (includes targeted exa ms where dose is matched to clinical indication); or iterative reconstruction.
--- NOTE | 2024-08-27 22:00 | RT.EKG_ITS ---
APPROVED REPORT Exam: Resting ECG Reason for Exam: tachy, sepsis Patient Location: E HR:173 bpm ECG Measurements Heart Rate 173 AXIS HI [id number] P [id number] QRSd 108 QRS -45 QT 270 T 117 QTc 455 Conclusion Atrial fibrillation with RVR, rate [address] changes, no STEMI No priors available
[2024-08-27 22:15] LABS: BE (Venous) -5 mmol/L (-2-3); HCO3 (Venous) 20 mmol/L (23-28); O2 Sat (Venous) 53 %; TCO2 (Venous) 18 mmol/L (24-29); pCO2 (Venous) 33 mmHg (41-51); pH (Venous) 7.39 (7.31-7.41); pO2 (Venous) 30 mmHg
--- NOTE | 2024-08-27 22:15 | DI.CT_ITS ---
Exam(s) CT HEAD CERVICAL SPINE WO EXAM: CT HEAD CERVICAL SPINE WO CLINICAL HISTORY: fall, neck pain. TECHNIQUE: Imaging Protocol: Axial computed tomography images with coronal and sagittal reformatted images were created and reviewed COMPARISON: No exams were available for comparison FINDINGS: BRAIN: There are no skull fractures nor fluid in the visualized paranasal sinuses. There is no evidence of intracranial hemorrhage, mass effect, or shift of midline structures. There are no extra-axial fluid collections. The ventricles are not enlarged or shifted and there is no blo od within the ventricular system nor within the basal cisterns. CERVICAL SPINE: There is no evidence of fracture nor listhesis. No significant prevertebral soft tissue swelling. And there is chronic disc space narrowing at C5-6 level and Luschka joint osteophytes noted at this l evel. Other disc spaces exhibit normal height. There is mild-moderate facet arthropathy. There is no significant facet joint malalignment. No significant osseous lesions evident. IMPRESSION: No acute intracranial findings on this noninfused CT scan of the brain. No evidence of cervical spine fracture, malalignment, nor acute compromise of the cervical spinal can al. Chronic degenerative disc disease evident as described above. RADIATION DOSE DELIVERED: 1,396.53mGy.cm Total [facility]LP DATA REPOSITORY: All CT scans at this facility are submitted to the National Radiology Data Registry (NRDR) Dose Index Registry (DIR) with the [employer] ([employer]). RADIATION OPTIMIZATION: All CT scans at this facility use at least one of these dose optimization te chniques: automated exposure control; mA and/or kV adjustment per patient size (includes targeted exa ms where dose is matched to clinical indication); or iterative reconstruction.
--- NOTE | 2024-08-27 22:15 | DI.CT_ITS ---
Exam(s) CT LOWER EXTREMITY RT W EXAM: CT LOWER EXTREMITY RT W CLINICAL HISTORY: Foot infection, eval nec fasc vs osteo. TECHNIQUE: Imaging Protocol: Axial computed tomography images with coronal and sagittal reformatted images were created and reviewed. CONTRAST MATERIAL: Intravenous: Omnipaque 350 Contrast volume:100 contrast route:IV - COMPARISON: CT CT LOWER EXTREMITY RT WO from 07/29/2023 FINDINGS: SOFT TISSUES: There is abundant gas within the soft tissues of the foot, most prominent in the latera l aspect but also medially and also extending into the calcaneal and plantar fascial and pre-Achilles tendon region as well as the digits. This gas is associated with the myofascial planes and is highl y suspicious for necrotizing fasciitis. There is no radiopaque foreign body. OSSEOUS: There is also gas within the marrow of the 2nd, 3rd, 4th and 5th metatarsal bones suspicious for anae robic osteomyelitis. There is dislocation of the navicular bone medially. Advanced multilevel degenerative changes. IMPRESSION: Findings are consistent with osteomyelitis and necrotizing fasciitis, as described above.. Preliminary virtual Radiology report was reviewed. RADIATION DOSE DELIVERED: 1,431.31mGy.cm Total DLP DATA REPOSITORY: All CT scans at this facility are submitted to the National Radiology Data Registry (NRDR) Dose Index Registry (DIR) with the [employer] (A[employer]). RADIATION OPTIMIZATION: All CT scans at this facility use at least one of these dose optimization te chniques: automated exposure control; mA and/or kV adjustment per patient size (includes targeted exa ms where dose is matched to clinical indication); or iterative reconstruction.
[2024-08-27 22:16] LABS: Lactate 2.7 mmol/L (<or=2.0)
--- NOTE | 2024-08-27 22:18 | ED.GENADUL_ITS ---
Discharge Plan Disposition Patient Disposition: Transfer-Acute Inpatient Care Specific Acute Inpt Facility: [facility] Condition: Serious Discharge Details Clinical Impression: Necrotizing fasciitis of lower leg, Severe sepsis, Atrial fibrillation with rapid ventricular response Primary Care Provider: Aad Cash ED Provider: Sabina Troy Home Meds and New Rx's Prescriptions: No Action cholecalciferol (vitamin D3) 50 mcg (2,000 unit) capsule 50 mcg PO DAILY Balanced B-100 Complex 100 mg tablet extended release 1 tab PO DAILY ascorbic acid (vitamin C) 500 mg capsule 500 mg PO DAILY PRN urea 39 % cream 1 applic topical .QD Qty: 227 3RF Rx Instructions: Apply to feet; calluses and nails. Apply at a separate time of day from the ketoconazole. May dispense 8oz bottle if available. insulin degludec [Tresiba FlexTouch U-100] 100 unit/mL (3 mL) insulin pen 35 unit subcut DAILY aspirin 81 mg tablet,delayed release (DR/EC) 81 mg PO DAILY lisinopril 20 mg tablet 20 mg PO DAILY spironolactone 25 mg tablet 25 mg PO BID Rx Instructions: take 1/2 tablet once daily for edema, stop potassium torsemide 10 mg tablet 40 mg PO DAILY Rx Instructions: take 1 tablet everyday for edema, may increase to 2 tabs daily if needed, stop furosemide atomoxetine 60 mg capsule 60 mg PO DAILY pantoprazole 40 mg tablet,delayed release (DR/EC) 40 mg PO DAILY amlodipine 10 mg tablet 10 mg PO DAILY potassium chloride 20 mEq/15 mL liquid 20 meq PO DAILY atorvastatin 40 mg tablet 40 mg PO DAILY HPI General Mode of arrival: EMS . Date/Time Provider Initiated Documentation: 08/27/24 22:14 . Limitations to Documentation: no limitations . Information obtained by: patient, EMS and old records reviewed . HPI Narrative: This is a 59-year-old male patient with a past medical history significant for insulin-dependent diabetes, a history of Charcot joint of the right foot and associated chronic ulcerations, history of hypertension, NE, and GERD who was brought in by EMS after being found down in his home. He reports that around midnight last night he fell, was on the ground for approximately 22 hours before a neighbor/family member found him. He reports that he is experiencing some discomfort in his neck and the back of his shoulder from this fall. States that he has been sick for about a month, has had decreased oral intake, is not drinking much, and has had some nausea with vomiting and diarrhea. He also has a right foot infection that has worsened, for at least the last month. EMS brought the patient in, noted a blood glucose of 315, noted him to be tachycardic with an irregular rhythm, no other interventions on the transport in. The patient reports that he lives alone, was recently diagnosed with heart failure but has no personal history of atrial fibrillation or flutter and does not take anticoagulant medications. Last admitted for his Charcot foot 1 year ago. Related Data Home Medications ?Medication ?Instructions ?Recorded ?Confirmed amlodipine 10 mg tablet 10 mg PO DAILY 06/01/23 08/27/24 atomoxetine 60 mg capsule 60 mg PO DAILY 06/01/23 08/27/24 atorvastatin 40 mg tablet 40 mg PO DAILY 06/01/23 08/27/24 pantoprazole 40 mg tablet,delayed 40 mg PO DAILY 06/01/23 08/27/24 release potassium chloride 20 mEq/15 mL 20 meq PO DAILY 06/01/23 08/27/24 oral liquid ascorbic acid (vitamin C) 500 mg 500 mg PO DAILY PRN 08/08/23 08/27/24 capsule cholecalciferol (vitamin D3) 50 50 mcg PO DAILY 08/08/23 08/27/24 mcg (2,000 unit) capsule vit B complex 100 combo no.2 100 1 tab PO DAILY 08/08/23 08/27/24 mg tablet,extended release (Balanced B-100 Complex) urea 39 % topical cream 1 applic topical .QD #227 grams 10/15/23 08/27/24 insulin degludec 100 unit/mL (3 35 unit subcut DAILY 06/18/24 08/27/24 mL) subcutaneous pen (Tresiba FlexTouch U-100 insulin) aspirin 81 mg tablet,delayed 81 mg PO DAILY 07/06/24 08/27/24 release lisinopril 20 mg tablet 20 mg PO DAILY 07/06/24 08/27/24 spironolactone 25 mg tablet 25 mg PO BID 07/06/24 08/27/24 torsemide 10 mg tablet 40 mg PO DAILY 07/06/24 08/27/24 Previous Rx's ?Medication ?Instructions ?Recorded urea 39 % topical cream 1 applic topical .QD #227 grams 10/15/23 Allergies Allergy/AdvReac Type Severity Reaction Status Date / Time insulin aspart (From Novolog Allergy Severe severe Verified 08/27/24 22:24 U-100 Insulin aspart) abdominal pain Sulfa (Sulfonamide Allergy Intermediate abdominal Verified 08/27/24 22:24 Antibiotics) pain tetracycline Allergy Mild Nausea Verified 08/27/24 22:24 mold Allergy Unknown Unknown Verified 08/27/24 22:24 erythromycin base AdvReac Intermediate nausea/diar Verified 08/27/24 22:24 monisha insulin detemir (From AdvReac Mild GI upset Verified 08/27/24 22:24 Levemir U-100 Insulin) nut - unspecified AdvReac Mild nausea Verified 08/27/24 22:24 General TIGIST: 2 Exam Narrative Exam Narrative: Gen: Awake and alert, appears acutely ill HEENT: Non-icteric sclera Neck: Supple, no C-spine tenderness to palpation, no step-offs, tenderness over the right paraspinal muscles Lungs: No apparent respiratory distress, normal respiratory effort with mild tachypnea, lung sounds present and equal bilaterally CV: Appears well perfused, heart with tachycardic rate and irregularly irregular rhythm, A-fib with RVR on telemetry with frequent PVCs, strong distal pulses Abdomen: Non-distended, generalized tenderness to palpation without rigidity MSK: Moves 4 extremities without apparent limitation in ROM. Skin: Right foot wound as pictured below, with black/necrotic blistering to the lateral aspect of the foot, redness and induration. The patient does have palpable DP pulses Neuro: No obvious focal deficits or facial asymmetry. Speaks in full, clear sentences. Psych: Appropriate for situation. Course Lab/Test Results Lab/Test Results: 08/27/24 22:08 Blood Blood Culture - Pending 08/27/24 22:02 Blood Blood Culture - Pending Laboratory Tests Range/Units 08/27/24 22:08 VBG pH (7.31-7.41) 7.39 VBG pCO2 (41-51) mmHg 33 L VBG pO2 mmHg 30 VBG HCO3 (23-28) mmol/L 20 L VBG Total CO2 (24-29) mmol/L 18 L VBG O2 Saturation % 53 VBG Base Excess (-2-3) mmol/L -5 L VBG Lactate (<or=2.0) mmol/L 2.7 H* Procedure Abscess Drainage Provider that performed the procedure: Sabina Troy EJ/Peripheral IV/Phlebotomy Date of Procedure: 08/27/24 Time of Procedure: 22:20 Indication: Difficult IV access Skin Cleansed in Sterile Fashion: Yes Laterality: Left Insertion Site: Brachial Size & Type: 18 ga. Number ofAttempts(See previous attempts in note section): 2 Dressing: IV Dressing Placed, Tegaderm Applied and Statlock Applied Estimated Blood Loss: minimal Procedure Tolerated: No Complications and Patient tolerated well Procedure Outcome: Successful Medical Decision Making This is a 59-year-old male patient presenting for evaluation after an approximately 22-hour downtime after a fall, with associated tachycardia, tachypnea, presumed sepsis from a skin and soft tissue source as well as a 1 month history of GI illness with nausea and diarrhea. On arrival the patient is mentating appropriately and protecting his airway, but is notably tachycardic with a new atrial fibrillation with RVR. Initial blood pressure soft at 100 systolic over 60. My differential includes but is not limited to sepsis, most likely due to a skin or soft tissue source, also considered intra-abdominal infection, pulmonary infection such as pneumonia, urinary tract infection, bacteremia. I considered necrotizing skin and soft tissue infection, osteomyelitis, Charcot joint. Considered DKA, dehydration, rhabdomyolysis, anemia, kidney injury, liver disease. Considered traumatic injuries including intracranial hemorrhage, skull fracture, spinal fracture. Considered ACS, heart failure exacerbation, arrhythmia, medication effect. Intravenous access x 2 was established, and the patient will be given a total of 2 L of IV fluid for initial hydration in the setting of sepsis. An EKG was obtained which shows an atrial fibrillation with a rapid ventricular rate, as well as frequent PVCs and rate related ST segment changes. Unfortunately, no priors are available for comparison. As the patient is not anticoagulated and I suspect that this is reactive in the setting of his sepsis we will hold on empiric cardioversion. We obtained a broad laboratory workup as well as blood cultures. Initial antibiosis to include cefepime, vancomycin, and clindamycin given our concern for potential necrotizing infection as well as polymicrobial infection in the setting of the patient's diabetes. The patient will also have CT imaging performed of his head, C-spine, chest abdomen and pelvis, as well as that right lower extremity with contrast to evaluate for emergently intervenable sources of infection - I reviewed the patient's laboratory studies, he has a notable leukocytosis to 34, no anemia or thrombocytopenia appreciated. VBG is without acidosis, hypercarbia, and I have a lower concern for DKA. Lactate elevated to 2.7. His metabolic panel reveals a mild hyponatremia to 132, a notably elevated BUN to 90 and creatinine of 2.5. Most recent laboratory studies available from 1-1/2 months ago reveal a BUN of 45 and a creatinine of 1.5. Glucose 300, slightly elevated bilirubin to 1.6, CK is not significantly elevated, though he does have an elevated BNP to 3900. Troponin initially negative. Urinalysis with small blood and bilirubin, no evidence for infectious findings such as pyuria, nitrate, or leukocyte esterase. The patient's renal dysfunction appears prerenal and I am concerned for significant dehydration. As the patient has received 2 L of IV fluid, I do feel it is reasonable in this emergent setting to proceed with a contrasted CT scan, as this may have clinical implications on the patient's management. - CT of the lower extremities most concerning for necrotizing fasciitis and osteomyelitis, with evidence of free air tracking along the fascial planes. The patient's head CT shows no acute traumatic injury, no intracranial hemorrhage. CT of the chest, abdomen and pelvis show evidence of cirrhosis, lymphadenopathy, but no other acute abnormalities that would require emergent intervention in this emergency department. Given these findings, I do feel that this patient is going to warrant emergent operative management, but I am concerned as he has new onset cardiac dysfunction as evidenced by his A-fib with RVR, and would be better served at a tertiary care facility with anesthesia, vascular, orthopedics, podiatry, etc. For this reason I reached out to [facility]. I spoke with Dr. Card with orthopedics, who reviewed the patient workup and images, and recommends emergent ED to ED transfer for surgical intervention. Dr. To in the ED accepts for transport, patient will be transported at the environmental health safety engineer level due to the need for cardiac monitoring and potential for pain management. On reassessment, the patient remains tachycardic, with a stable blood pressure, and no extension of the external skin changes of the right lower extremity. The patient left our facility with EMS without incident. Sabina Troy MD Medical Records Medical records reviewed: Yes I reviewed the patient's medical records. Lab Data Lab results reviewed: Yes I reviewed the patient's lab results. Quality:SDOH Health Related Social Needs: 2 No Data to Display PFSH All Active Problems (Updated 08/28/24 @ 02:33 by Sabina Troy MD) Atrial fibrillation with rapid ventricular response (Acute) Severe sepsis (Acute) Necrotizing fasciitis of lower leg (Acute) Venous (peripheral) insufficiency (Acute) Edema of lower extremity (Acute) Liver cirrhosis (Acute) Charcot joint of right foot (Acute) Traumatic avulsion of nail plate of toe (Acute) Ulcer of right foot with bone involvement without evidence of necrosis (Acute) Blister (nonthermal), right foot, initial encounter (Acute) Ulcer of right foot limited to breakdown of skin (Acute) Nail dystrophy (Acute) Onychomycosis (Acute) Charcot's joint of right foot (Acute) Edema (Acute) Charcot foot due to diabetes mellitus (Acute) HTN (hypertension) (Chronic) Closed navicular fracture of right foot (Acute) Closed fracture of fifth toe of right foot (Acute) Closed dislocation of navicular bone of right foot (Acute) Diabetes (Chronic) Right leg swelling (Acute) GERD (gastroesophageal reflux disease) (Chronic) Medical History History of myocardial infarction (~09/2023) x2 prior in 2019 Type 2 diabetes mellitus Abdominal pain Hypokalemia Diarrhea Peripheral neuropathy Cellulitis Myocardial infarction Surgical History History of colonoscopy (~2017) Per referral, does not state where, states normal S/P cholecystectomy S/P appendectomy Social History Smoking/Tobacco Use Status: Current every day Tobacco Type: cigarettes Smoking risk assessment performed?: Yes Alcohol Intake: current Alcohol Intake frequency: holidays/special occasions only Alcohol type: beer Drug use: Never Substance use type: does not use Housing: homeless Do you feel safe at home: Yes Do you feel safe in your relationship?: Yes Additional Social history: pt has job and medication list POCUS Exam (ED) Limited Cardiac Exam DATE OF EXAM: 06/05/25 TIME OF EXAM: 22:18 PROVIDER THAT PERFORMED THE STUDY: Sabina Troy REASON FOR EXAM: Hypotension and Septic Shock VISUALIZED STRUCTURES: Four Chambers, Left atrium, Left ventricle, Right atrium, Right ventricle, Aortic valve, Mitral valve and Interventricular septum VIEW OBTAINED: Parasternal long-axis, Parasternal short-axis, Subxiphoid and Other (b/l lung apices) PERTINENT FINDINGS/IMPRESSION: Other Hyperdynamic, no B-lines ; No pericardial effusion Exam complete Limited Soft Tissue Exam DATE OF EXAM: 08/27/24 TIME OF EXAM: 22:19 PROVIDER THAT PERFORMED THE STUDY: Sabina Troy LOCATION OF EXAM: Lower extremity/right REASON FOR EXAM: Pain, Redness and Swelling VISUALIZED STRUCTURES: Fascia, Skin and Subcutaneous tissue PERTINENT FINDINGS/IMPRESSION: Cellulitis R. lower extremity/foot and Cobblestoning R. lower extremity/foot . Exam Complete
[2024-08-27 22:19] LABS: Abs Immature Grans 0.64 10^3/uL (0.0-0.06); HCT 42.4 % (40.0-50.0); HGB 14.9 g/dL (13.5-17.5); MCH 29.2 pg (27.0-33.0); MCHC 35.1 % (32.0-36.0); MCV 83 fL (80-95); MPV 12.2 fL (8.0-11.0); Platelet Count 290 10^3/uL (130-400); RDW 13.3 % (11.8-14.1); RDW-SD 39.9 fL
[2024-08-27 22:32] LABS: Absolute Lymphocyte Count 1.36 10^3/uL (1.2-3.4); Absolute Monocyte Count 1.02 10^3/uL (0.1-0.8); Absolute Neutrophil Count 31.64 10^3/uL (1.2-6.7)
[2024-08-27 22:33] LABS: Diff Comment Manual Differential; RBC Morphology Normal
[2024-08-27 22:34] LABS: WBC 34.02 10^3/uL (4.4-10.8)
[2024-08-27] MEDS: CEFEPIME 1 GM in Normal Saline 50 ML IVPB (22:59)
[2024-08-27] MEDS: CLINDAMYCIN 600 MG/50 ML BAG 100 MG IVPB (23:03)
[2024-08-27] MEDS: Lactated Ringers 1,000 ML 1000 ML IV (23:04)
[2024-08-27] MEDS: VANCOMYCIN 2,000 MG in Normal Saline 500 ML 333.3333 MG IVPB (23:06)
[2024-08-27] MEDS: Lactated Ringers 500 ML 1000 ML IV (23:07)
[2024-08-27 23:21] LABS: INR 1.2 (0.9-1.1); PTT Activated 30.8 sec (20.6-30.2); Prothrombin Time 11.8 sec (9.1-11.1)
[2024-08-27 23:34] LABS: ALT 54 U/L (16-63); AST 27 U/L (15-37); Alkaline Phosphatase 246 U/L (46-116); Anion Gap 12.7 mmol/L (3-11); Bilirubin, Total 1.6 mg/dL (0.2-1.0); CO2 23.3 mmol/L (21.0-32.0); CREATININE 2.5 mg/dL (0.70-1.30); Calcium 9.1 mg/dL (8.5-10.1); Chloride 96 mmol/L (98-107); Creatine Kinase 24 U/L (39-308); Estimated GFR 28.87 (mL/min/1.73m2); Glucose 300 mg/dL (74-106); Magnesium 2.4 mg/dL (1.8-2.4); NT-proBNP 3929 pg/mL (<300); Potassium 4.5 mmol/L (3.5-5.1); Sodium 132 mmol/L (136-145); Total Protein 7.4 g/dL (6.4-8.2); Troponin I 11 ng/L (<or=76)
[2024-08-27 23:36] LABS: BUN 90 mg/dL (7-18)
[2024-08-27 23:52] LABS: Bilirubin Small (Negative); Blood Small (Negative); Clarity Clear (Clear); Glucose 100 mg/dL (Negative); Ketones Negative (Negative); Leukocyte Esterase Negative (Negative); Nitrite Negative (Negative); Specific Gravity 1.015 (1.005-1.025); pH 5.5 (5-8)
[2024-08-27 23:58] LABS: Bacteria Rare HPF (Negative); C & S Indicated? No; Casts 0-2 Hyaline LPF (Negative); Crystals Negative HPF (Negative); Epithelial Cells Few HPF (Negative); Mucus Negative (Negative); WBC 0-2 HPF (0-5)
[2024-08-28] VITALS (30 sets, daily range): BP systolic 109–180; BP diastolic 70–145; PULSE 58–169; RESP 16–26; TEMP 37.1; O2SAT 92–100
[2024-08-28 00:02] LABS: Procalcitonin 7.44 ng/mL
[2024-08-28] MEDS: Omnipaque 350 MG/ML 100 ML BTL IJ (00:33)
[2024-08-28] MEDS: Normal Saline - Diluent 50 ML VIAL IJ (00:34)
[2024-08-28 00:56] LABS: Troponin I 11 ng/L (<or=76)
--- NOTE | 2024-08-28 01:08 | DI.VRAD_ITS ---
PROCEDURE INFORMATION: Exam: CT Head Without Contrast Exam date and time: 08/27/2024 11:45 PM Age: 59 years old Clinical indication: Injury or trauma; Blunt trauma (contusions or hematomas); Consciousness not specified; Injury date: 08/27/24; Fall, neck pain TECHNIQUE: Imaging protocol: Computed tomography of the head without contrast. Radiation optimization: All CT scans at this facility use at least one of these dose optimization techniques: automated exposure control; mA and/or kV adjustment per patient size (includes targeted exams where dose is matched to clinical indication); or iterative reconstruction. COMPARISON: No relevant prior studies available. FINDINGS: Brain: Mild chronic small vessel ischemic change. No brain edema. No intracranial hemorrhage. Cerebral ventricles: No ventriculomegaly. Paranasal sinuses: Visualized sinuses are unremarkable. No fluid levels. Mastoid air cells: Unremarkable. Bones: Unremarkable. No acute fracture. Soft tissues: Unremarkable. IMPRESSION: No acute brain findings. PROCEDURE INFORMATION: Exam: CT Cervical Spine Without Contrast Exam date and time: 08/27/2024 11:45 PM Age: 59 years old Clinical indication: Injury or trauma; Blunt trauma (contusions or hematomas); Consciousness not specified; Injury date: 08/27/24; Fall, neck pain TECHNIQUE: Imaging protocol: Computed tomography of the cervical spine without contrast. Radiation optimization: All CT scans at this facility use at least one of these dose optimization techniques: automated exposure control; mA and/or kV adjustment per patient size (includes targeted exams where dose is matched to clinical indication); or iterative reconstruction. COMPARISON: No relevant prior studies available. FINDINGS: Bones: C5-C6 left paracentral disc osteophyte complex causing mild central canal stenosis. C6-C7 right paracentral disc herniation causing mild central canal stenosis. Nerve root impingement not excluded. No acute fracture. Lungs: Lung apices are normal. Soft tissues: Unremarkable. IMPRESSION: 1. C5-C6 left paracentral disc osteophyte complex causing mild central canal stenosis. C6-C7 right paracentral disc herniation causing mild central canal stenosis. Nerve root impingement not excluded. 2. No acute fracture. Dictated and Authenticated by: Ruben Mccall MD. Orderin [facility] Zach Muhammad MD
--- NOTE | 2024-08-28 01:22 | DI.VRAD_ITS ---
Addendum created by Manny Serna MD on 08/28/2024 1:36:25 AM EDT: THIS REPORT CONTAINS FINDINGS THAT MAY BE CRITICAL TO PATIENT CARE. The findings were verbally communicated via telephone conference with Sabina Troy at 1:15 AM EDT on 08/28/2024. The findings were acknowledged and understood. Initial report created on 08/28/2024 1:22:28 AM EDT: PROCEDURE INFORMATION: Exam: CT Right Lower Extremity With Contrast, Foot Exam date and time: 08/27/2024 11:59 PM Age: 59 years old Clinical indication: Foot infection, eval nec fasc vs osteo TECHNIQUE: Imaging protocol: CT of the right lower extremity with intravenous contrast was performed. Exam focused on the foot. Radiation optimization: All CT scans at this facility use at least one of these dose optimization techniques: automated exposure control; mA and/or kV adjustment per patient size (includes targeted exams where dose is matched to clinical indication); or iterative reconstruction. Contrast material: [id number]; Contrast volume: 100 ml; Contrast route: INTRAVENOUS (IV); COMPARISON: MR LOWER EXTREMITY RT WO/W 07/30/2023 7:26 AM FINDINGS: Bones/joints: In addition to the soft tissue gas there is gas present within the medullary portions of the proximal 2nd, 3rd, 4th and 5th metatarsals heads highly suspicious for anaerobic infection within the bone/osteomyelitis. Probable lytic lesion present within the talus suspicious for osteomyelitis. Evidence of prior trauma and postsurgical changes with bony defects and healed fractures. There is severe erosion of the osseous structures of the 5th digit. Soft tissues: There is gas within the soft tissues of the right foot predominantly within the lateral aspect but extending into the calcaneal region, the plantar fascia, the Achilles tendon this structures and the digits. The gas tracks along the myofascial planes highly suspicious for necrotizing fasciitis. IMPRESSION: 1. There is gas within the soft tissues of the right foot predominantly within the lateral aspect but extending into the calcaneal region, the plantar fascia, the Achilles tendon this structures and the digits. The gas tracks along the myofascial planes highly suspicious for necrotizing fasciitis. 2. In addition to the soft tissue gas there is gas present within the medullary portions of the proximal 2nd, 3rd, 4th and 5th metatarsals heads highly suspicious for anaerobic infection within the bone/osteomyelitis. 3. These findings are consistent with osteomyelitis and necrotizing fasciitis. Dictated and Authenticated by: Manny Serna MD. Orderin [facility] Zach Muhammad MD
--- NOTE | 2024-08-28 01:35 | DI.VRAD_ITS ---
PROCEDURE INFORMATION: Exam: CT Chest With Contrast; Diagnostic Exam date and time: 08/27/2024 11:59 PM Age: 59 years old Clinical indication: Nausea and vomiting; Prior surgery; Surgery date: 6+ months; Surgery type: Cholecepectomy. Appendectomy; Sepsis, 1 month n/v/d TECHNIQUE: Imaging protocol: Diagnostic computed tomography of the chest with contrast. 3D rendering (Not supervised by radiologist): MIP and/or 3D reconstructed images were created by the technologist. Radiation optimization: All CT scans at this facility use at least one of these dose optimization techniques: automated exposure control; mA and/or kV adjustment per patient size (includes targeted exams where dose is matched to clinical indication); or iterative reconstruction. Contrast material: [id number]; Contrast volume: 100 ml; Contrast route: INTRAVENOUS (IV); COMPARISON: No relevant prior studies available. FINDINGS: Lungs: There is no evidence of focal pulmonary consolidation. No evidence of pulmonary parenchymal inflammatory changes. There is no evidence of pulmonary masses. Pleural spaces: There is no evidence of pneumothorax. There are no pleural effusions present. Heart: There is calcification of the cardiac mitral valve annulus. The cardiac structures are otherwise normal. Coronary arteries: There is moderate atherosclerotic calcification of the coronary arteries. Lymph nodes: There is no evidence of lymphadenopathy. Vasculature: The aorta demonstrates mild atherosclerotic calcification. The pulmonary arteries are normal in caliber. The aorta and great vessels appear normal. Please see CT of the abdomen and pelvis There is no evidence of filling defects within the pulmonary arterial circulation to suggest pulmonary embolism. This is not a dedicated CT angiogram for pulmonary embolism. Bones/joints: The spine, sternum, ribs, and pectoral girdles show no evidence of acute abnormality. Soft tissues: There are no soft tissue masses or fluid collections. Small amount of gas within the soft tissues of the left upper extremity appear to be associated with the patient's intravenous access and limited to the area of a vascular access device. Other findings: The mediastinal structures are normal. IMPRESSION: 1. There are no soft tissue masses or fluid collections. Small amount of gas within the soft tissues of the left upper extremity appear to be associated with the patient's intravenous access and limited to the area of a vascular access device. 2. No acute cardiopulmonary disease . 3. Please see CT of the abdomen and pelvis. 4. There is no evidence of filling defects within the pulmonary arterial circulation to suggest pulmonary embolism. This is not a dedicated CT angiogram for pulmonary embolism. PROCEDURE INFORMATION: Exam: CT Abdomen And Pelvis With Contrast Exam date and time: 08/27/2024 11:59 PM Age: 59 years old Clinical indication: Nausea and vomiting; Prior surgery; Surgery date: 6+ months; Surgery type: Cholecepectomy. Appendectomy; Sepsis, 1 month n/v/d TECHNIQUE: Imaging protocol: Computed tomography of the abdomen and pelvis with contrast. 3D rendering (Not supervised by radiologist): MIP and/or 3D reconstructed images were created by the technologist. Radiation optimization: All CT scans at this facility use at least one of these dose optimization techniques: automated exposure control; mA and/or kV adjustment per patient size (includes targeted exams where dose is matched to clinical indication); or iterative reconstruction. Contrast material: [id number]; Contrast volume: 100 ml; Contrast route: INTRAVENOUS (IV); COMPARISON: CT ABDOMEN PELVIS W 01/10/2024 9:48 AM FINDINGS: Lungs: Please see CT of the chest and lungs. Liver: There is a finely nodular contour to the liver and hypertrophy of the caudate lobe, consistent with end-stage cirrhosis. The liver is enlarged.There is no evidence of intrahepatic or extrahepatic biliary ductal dilation. Gallbladder and biliary ducts: There has been a cholecystectomy. Dropped clips are present within the pelvis likely from patient's gallbladder surgery. Pancreas: There is mild pancreatic atrophy. Spleen: The spleen is enlarged. Adrenal glands: There is an 8.9 mm low-attenuation mass within the right adrenal gland likely representing a small adrenal adenoma. No other abnormalities within the adrenal glands identified. Kidneys and ureters: The kidneys are normal. Stomach and bowel: Small hiatal hernia present.. No obstruction. No mucosal thickening. Appendix: A normal appendix is identified. There is no evidence of distention or periappendiceal inflammation to suggest appendicitis. Intraperitoneal space: Mild haziness of the mesentery may represent early inflammatory process no definitive fluid collections or abscess identified. Vasculature: The aorta demonstrates mild atherosclerotic calcification. The arterial peripheral vasculature demonstrates diffuse mild atherosclerotic calcification. Lymph nodes: Mild lymphadenopathy present within the naida hepatis. This was present on the prior study of 01/10/2024. Moderate periaortic and retroperitoneal adenopathy present. This was present on the prior study of 01/10/2024. There are enlarged nonspecific lymph nodes in the mesenteric fat. This nonspecific mesenteric adenitis can be secondary to a variety of bacterial, viral, or other inflammatory processes. This was present on the prior study of 01/10/2024. Urinary bladder: The bladder is decompressed by a Shabazz catheter but is otherwise normal. There is a small amount of urinary bladder intraluminal air consistent with instrumentation. Reproductive: The prostate gland and seminal vesicles are normal. Bones/joints: The skeletal structures and soft tissues show no evidence of fracture or other acute processes. The lumbar spine is normal. Sclerotic lesion within the right sacrum was present 01/10/2024. Soft tissues: The extra-abdominal soft tissues are normal. IMPRESSION: 1. Cirrhosis with hepatosplenomegaly. 2. There are enlarged nonspecific lymph nodes in the mesenteric fat. This nonspecific mesenteric adenitis can be secondary to a variety of bacterial, viral, or other inflammatory processes. This was present on the prior study of 01/10/2024. 3. No new findings compared to the prior study of 01/10/24. Dictated and Authenticated by: Manny Serna MD. Orderin [facility] Zach Muhammad MD
[2024-08-28 02:37] LABS: ESR 67 mm/hr (0-20)
[2024-08-28 02:42] LABS: Lab Add On Test DONE
--- NOTE | 2024-08-28 15:50 | NUR.NOTE ---
Nursing Note:Received call from lab - Anaerobic bottle positive for gram positive cocci in chains. Patient transferred to [facility] [place], Lab results faxed to [facility] [place]. MORENO Samayoa
== END 2024-08-28 03:06 | disposition short-term general hospital (02) ==
PROVIDERS: Emergency Provider Emergency Medicine; PCP Nurse Practitioner Family
DX: L02.611 Cutaneous abscess of right foot (principal); M72.6 Necrotizing fasciitis; R65.20 Severe sepsis without septic shock; E11.65 Type 2 diabetes mellitus with hyperglycemia; E11.40 Type 2 diabetes mellitus with diabetic neuropathy, unspecified; I25.2 Old myocardial infarction; I10 Essential (primary) hypertension; F17.210 Nicotine dependence, cigarettes, uncomplicated; Z79.82 Long term (current) use of aspirin; Z79.4 Long term (current) use of insulin; I48.91 Unspecified atrial fibrillation
CPT/HCPCS: 10160; 74177; 76882; 80053; 82550; 82805; 84145; 85652; 86850; 86900; 86901; 87040; 87077; 93005; 93308; 96365; 96366; 96375; 99285; 70450; 71260; 72125; 73701; 81003; 81015; 83605; 83735; 83880; 84484; 85025; 85610; 85730; 86140; 93010; J0692; J0737; J3370; J3490

== ENCOUNTER 2024-12-23 10:37 | Outpatient (REF) | payer MEDICAID, SELFPAY ==
[2024-12-23 11:18] LABS: Abs Immature Grans 0.03 10^3/uL (0.0-0.06); HCT 41.0 % (40.0-50.0); HGB 13.6 g/dL (13.5-17.5); Immature Grans % 0.3 %; MCH 28.9 pg (27.0-33.0); MCHC 33.2 % (32.0-36.0); MCV 87 fL (80-95); MPV 10.1 fL (8.0-11.0); Platelet Count 240 10^3/uL (130-400); RBC 4.71 10^6/uL (4.36-5.78); RDW 12.6 % (11.8-14.1); RDW-SD 39.6 fL; WBC 10.46 10^3/uL (4.4-10.8)
[2024-12-23 11:23] LABS: ESR 25 mm/hr (0-20)
[2024-12-23 11:24] LABS: ALT 86 U/L (16-63); AST 39 U/L (15-37); Albumin 3.7 g/dL (3.4-5.0); Alkaline Phosphatase 150 U/L (46-116); Anion Gap 9.6 mmol/L (3-11); BUN 28 mg/dL (7-18); Bilirubin, Total 0.6 mg/dL (0.2-1.0); CO2 28.4 mmol/L (21.0-32.0); Calcium 8.8 mg/dL (8.5-10.1); Chloride 104 mmol/L (98-107); Estimated GFR 69.66 (mL/min/1.73m2); Glucose 196 mg/dL (74-106); Potassium 3.6 mmol/L (3.5-5.1); Sodium 142 mmol/L (136-145); Total Protein 7.1 g/dL (6.4-8.2)
[2024-12-23 11:26] LABS: C-Reactive Protein < 0.50 mg/dL (<or=0.5)
== END 2024-12-23 10:38 | disposition home or self-care (01) ==
LOC: LBN 10:37
PROVIDERS: PCP Nurse Practitioner Family; Visit Provider Nurse Practitioner Adult Health
DX: E11.628 Type 2 diabetes mellitus with other skin complications (principal)
CPT/HCPCS: 80053; 85652; 83605; 85025; 86140

== ENCOUNTER 2024-12-28 13:54 | Outpatient (REF) | payer MEDICAID, SELFPAY ==
[2024-12-28 14:22] LABS: Hemoglobin A1C 6.3 % (<5.7)
== END 2024-12-28 13:55 | disposition home or self-care (01) ==
LOC: LBN 13:54
PROVIDERS: PCP Nurse Practitioner Family; Visit Provider Nurse Practitioner Adult Health
DX: E11.65 Type 2 diabetes mellitus with hyperglycemia (principal)
CPT/HCPCS: 83036